=== PATIENT | male | born 1980 | race Caucasian/White ===

== ENCOUNTER 2022-06-28 18:54 | Emergency (ER) | payer OTHER ==
[2022-06-28] MEDS ORDERED: DUONEB 0.5-3 MG/3 ml Neb IH ONE ×2 (19:15→19:52)
[2022-06-28 19:34] LABS: Absolute Neutrophil Ct (ANC) 6.08 x10^3/uL (1.4-6.9); Basophil (Absolute #) 0.07 x10^3/uL (0-0.4); Eosinophil % 1.6 % (0.00-5.0); Eosinophil (Absolute #) 0.17 x10^3/uL (0-0.5); Hematocrit 40.7 % (42-50); Hemoglobin 13.4 g/dL (12.5-18.0); Lymphocyte (Absolute #) 3.71 x10^3/uL (1.0-4.6); Lymphocytes % 34.4 % (24.0-44.0); Mean Cell Volume 94.2 fL (78-100); Mean Corpuscular Hgb Concent. 32.9 g/dL (32-36); Mean Platelet Volume 10.1 fL (7.5-11.0); Monocyte (Absolute #) 0.71 x10^3/uL (0.0-1.3); Monocytes % 6.6 % (0.0-12.0); Neutrophil % 56.5 % (36.0-66.0); Platelet Count 275 x10^3/uL (150-450); Red Blood Count 4.32 x10^6/uL (4.1-5.6); Red Cell Distribution Width 12.9 % (11.5-14.0); White Blood Count 10.8 x10^3/uL (4.0-10.5)
--- NOTE | 2022-06-28 19:41 | ERPHSYRPT ---
- History of Present Illness Time Seen by Provider: 06/28/22 19:15 Source: patient Exam Limitations: no limitations Patient Subjective Stated Complaint: pt states "I think I have scare tissue on my lungs from when I had covid. I am freaking out." Triage Nursing Assessment: pt ambulated into the er; pt is axo x4; c/o sob; pt denies pain; pt is anxious; pt is not showing signs of visible respiratory distress; pt 100% on room air; clear lung sounds in all lobes; afebrile; hypertensive Physician History: 42 years old male with history of heavy tobacco abuse presented in the ER with chief complaint of chest tightness pressure which patient describes "I have an elephant sitting on my right chest". This has been going off and on for 2 weeks with gradual worsening lately. Also report chronic smoker cough which is not any worse than usual. Patient thinks he has a lung scarring from COVID-19. Gets short of breath with activity and also it hurts to take a deep breath. No fever or chills reported. Timing/Duration: week(s) (2), gradual onset, worse Activities at Onset: activity Severity of Dyspnea-Max: moderate Severity of Dyspnea-Current: moderate Possible Cause: no prior episodes Modifying Factors: Worsens With: coughing, deep breath Associated Symptoms: cough, chest pain/discomfort, painful breathing, tightness Allergies/Adverse Reactions: No Known Drug Allergies Allergy (Unverified 06/28/22 19:01) Hx Tetanus, Diphtheria Vaccination/Date Given: No Hx Influenza Vaccination/Date Given: Yes Travel Risk - International Travel Have you traveled outside of the country in past 3 weeks: No - Coronavirus Screening Are you exhibiting any of the following symptoms?: No Close contact with a COVID-19 positive Pt in past 14-21 Days: No - Vaccine Status Have you recieved a Covid-19 vaccination: Yes 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: [employer] - Review of Systems Constitutional: No Symptoms Eyes: No Symptoms Ears, Nose, & Throat: No Symptoms Respiratory: Cough, Dyspnea Cardiac: Chest Pain Abdominal/Gastrointestinal: No Symptoms Genitourinary Symptoms: No Symptoms Musculoskeletal: No Symptoms Skin: No Symptoms Neurological: No Symptoms Psychological: No Symptoms Endocrine: No Symptoms Hematologic/Lymphatic: No Symptoms - Past Medical History Pertinent Past Medical History: No - Past Surgical History Past Surgical History: No - Social History Smoking Status: Current every day smoker Exposure to second hand smoke: Yes Drug Use: marijuana Patient Lives Alone: No - Nursing Vital Signs Nursing Vital Signs: Initial Vital Signs Temperature 98.2 F 06/28/22 19:02 Pulse Rate 107 H 06/28/22 19:02 Respiratory Rate 18 06/28/22 19:02 Blood Pressure 182/107 06/28/22 19:02 O2 Sat by Pulse Oximetry 100 06/28/22 19:02 Pain Scale Pain Intensity 0 - Physical Exam General Appearance: no apparent distress, alert Eye Exam: PERRL/EOMI Ears, Nose, Throat Exam: hearing grossly normal Neck Exam: normal inspection, full range of motion Respiratory Exam: normal breath sounds, lungs clear Cardiovascular/Chest Exam: normal heart sounds, tachycardia Abdominal/Gastrointestinal Exam: soft, normal bowel sounds, No tenderness Extremity Exam: non-tender, normal range of motion Neurologic Exam: alert, 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, cooperative Skin Exam: normal color SpO2 Interpretation: normal SpO2: 100 O2 Delivery: Room Air Ordered Tests: Active Orders 24 hr Category Date Time Status Cell Support Operator STAT Care 06/28/22 19:15 Active EKG-ER Only STAT Care 06/28/22 19:15 Active IV Insertion STAT Care 06/28/22 19:15 Active CHEST 1 VIEW (PORTABLE) Stat Exams 06/28/22 19:46 Taken CBC W DIFF Stat Lab 06/28/22 19:33 Completed CMP Stat Lab 06/28/22 19:33 Results D-DIMER QUANTITATIVE Stat Lab 06/28/22 19:33 Completed NT PRO BNP Stat Lab 06/28/22 19:33 Results TROPONIN Q4H Lab 06/28/22 19:33 Completed TROPONIN Q4H Lab 06/28/22 23:15 Ordered TROPONIN Q4H Lab 06/29/22 03:15 Ordered Respiratory Therapy Assessment DAILY RT 06/28/22 19:54 Completed Medication Summary Discontinued Medications Generic Name Dose Route Start Last Admin Trade Name Freq PRN Reason Stop Dose Admin Albuterol/Ipratropium 3 ml 06/28/22 19:15 06/28/22 19:53 Ipratropium/Albuterol Sulfate 3 Ml Ampul.Neb IH 06/28/22 19:16 3 ml STAT ONE Administration Albuterol/Ipratropium Confirm 06/28/22 19:52 Ipratropium/Albuterol Sulfate 3 Ml Ampul.Neb Administered 06/28/22 19:53 Dose 3 ml IH .STK-MED ONE Lab/Rad Data: Laboratory Result Diagrams 06/28/22 19:33 06/28/22 19:33 Laboratory Results 06/28/22 06/28/22 06/28/22 Range/Units 19:33 19:33 19:33 WBC 10.8 H (4.0-10.5) x10^3/uL RBC 4.32 (4.1-5.6) x10^6/uL Hgb 13.4 (12.5-18.0) g/dL Hct 40.7 L (42-50) % MCV 94.2 (78-100) fL MCH 31.0 (26-32) pg MCHC 32.9 (32-36) g/dL RDW 12.9 (11.5-14.0) % Plt Count 275 (150-450) x10^3/uL MPV 10.1 (7.5-11.0) fL Gran % 56.5 (36.0-66.0) % Immature Gran % (Auto) 0.3 (0.00-0.4) % Nucleat RBC Rel Count 0.0 (0.00-0.1) % Eos # (Auto) 0.17 (0-0.5) x10^3/uL Immature Gran # (Auto) 0.03 (0.00-0.03) x10^3u/L Absolute Lymphs (auto) 3.71 (1.0-4.6) x10^3/uL Absolute Monos (auto) 0.71 (0.0-1.3) x10^3/uL Absolute Nucleated RBC 0.00 (0.00-0.01) x10^3u/L Lymphocytes % 34.4 (24.0-44.0) % Monocytes % 6.6 (0.0-12.0) % Eosinophils % 1.6 (0.00-5.0) % Basophils % 0.6 (0.0-0.4) % Absolute Granulocytes 6.08 (1.4-6.9) x10^3/uL Basophils # 0.07 (0-0.4) x10^3/uL D-Dimer < 0.19 (0.0-0.50) mg/L Sodium Pending Sodium Direct 141 (138-146) mmol/L Potassium 4.2 (3.5-4.9) mmol/L Chloride 104 (98-109) mmol/L Carbon Dioxide 26 (24-29) mmol/L Anion Gap Pending BUN Pending Venous BUN 21 (8-26) mg/dL Creatinine 1.2 (0.6-1.3) mg/dL Estimated GFR Pending Glucose 108 H (70-105) mg/dL Calcium Pending Ionized Calcium 1.27 (1.12-1.32) mmol/L Total Bilirubin Pending AST Pending ALT Pending Alkaline Phosphatase Pending Troponin 0.00 (0.00-0.03) ng/mL Troponin I (0.000-0.034) ng/mL NT-Pro-B Natriuret Pep 70.8 (0-450) pg/mL Serum Total Protein Pending Albumin Pending 06/28/22 Range/Units 19:33 WBC (4.0-10.5) x10^3/uL RBC (4.1-5.6) x10^6/uL Hgb (12.5-18.0) g/dL Hct (42-50) % MCV (78-100) fL MCH (26-32) pg MCHC (32-36) g/dL RDW (11.5-14.0) % Plt Count (150-450) x10^3/uL MPV (7.5-11.0) fL Gran % (36.0-66.0) % Immature Gran % (Auto) (0.00-0.4) % Nucleat RBC Rel Count (0.00-0.1) % Eos # (Auto) (0-0.5) x10^3/uL Immature Gran # (Auto) (0.00-0.03) x10^3u/L Absolute Lymphs (auto) (1.0-4.6) x10^3/uL Absolute Monos (auto) (0.0-1.3) x10^3/uL Absolute Nucleated RBC (0.00-0.01) x10^3u/L Lymphocytes % (24.0-44.0) % Monocytes % (0.0-12.0) % Eosinophils % (0.00-5.0) % Basophils % (0.0-0.4) % Absolute Granulocytes (1.4-6.9) x10^3/uL Basophils # (0-0.4) x10^3/uL D-Dimer (0.0-0.50) mg/L Sodium Sodium Direct (138-146) mmol/L Potassium (3.5-4.9) mmol/L Chloride (98-109) mmol/L Carbon Dioxide (24-29) mmol/L Anion Gap BUN Venous BUN (8-26) mg/dL Creatinine (0.6-1.3) mg/dL Estimated GFR Glucose (70-105) mg/dL Calcium Ionized Calcium (1.12-1.32) mmol/L Total Bilirubin AST ALT Alkaline Phosphatase Troponin (0.00-0.03) ng/mL Troponin I < 0.012 (0.000-0.034) ng/mL NT-Pro-B Natriuret Pep (0-450) pg/mL Serum Total Protein Albumin - Progress Progress: improved, re-examined Air Movement: good Progress Note: 06/28/22 22:18 Is given DuoNeb, on reevaluation feeling better. EKG no acute ischemic changes. Negative troponin and D-dimer. Chest x-ray negative for any acute finding reviewed by me, official report is pending. Patient symptoms been going on for couple of weeks and do not think needs second troponin and one will rule out. I would give him albuterol inhaler to use as needed and recommended smoking cessation. Blood Culture(s) Obtained: No Antibiotics given: No Counseled pt/family regarding: lab results, diagnosis, need for follow-up, rad results, smoking cessation - Departure Departure Disposition: Home Clinical Impression: Atypical chest pain Condition: Stable Critical Care Time: No Referrals: CLAUDETTE LOPEZ [Primary Care Provider] - Follow up/PCP as directed (1 2 days for reevaluation) RUBA MARTINEZ [CONSULTING PHYSICIAN] - Follow up/PCP as directed (Call for appointment for reevaluation) Instructions: Chest Pain (DC) Additional Instructions: Follow-up with primary care and cardiology for reevaluation. Do not smoke. Return to ER for worsening chest pain or if having difficulty breathing etc. Prescriptions: Albuterol Sulfate [Albuterol Sulfate Hfa] 8.5 gm IH Q6H PRN 7 Days #1 inh PRN Reason: Cough
[2022-06-28 20:13] LABS: ISTAT BUN 21 mg/dL (8-26); ISTAT CL 104 mmol/L (98-109); ISTAT CO2 26 mmol/L (24-29); ISTAT CREA 1.2 mg/dL (0.6-1.3); ISTAT GLUC 108 mg/dL (70-105); ISTAT K 4.2 mmol/L (3.5-4.9); ISTAT NA 141 mmol/L (138-146)
[2022-06-28 21:09] VITALS: BP 132/83; PULSE 63
[2022-06-28 22:03] VITALS: O2SAT 100
[2022-06-28 22:14] LABS: NT PRO BNP 70.8 pg/mL (0-450)
[2022-06-28 22:35] LABS: ALBUMIN 4.7 g/dL (3.5-5.0); ALKALINE PHOSPHATASE 68 U/L (38-126); ANION GAP 15.2 MEQ/L (5-15); BLOOD UREA NITROGEN 18 mg/dL (9-20); CHLORIDE 104 mmol/L (98-107); Calcium 9.6 mg/dL (8.4-10.2); Carbon Dioxide 24 mmol/L (22-30); Creatinine 1 1.03 mg/dL (0.66-1.25); EST GLOMERULAR FILTRATION RATE > 60.0 ML/MIN; Glucose 111 mg/dL (74-106); Potassium 4.6 mmol/L (3.5-5.1); SGOT/AST 23 U/L (17-59); SGPT/ALT 16 U/L (0-50); SODIUM 139 mmol/L (137-145); Total Protein 7.5 g/dL (6.3-8.2)
--- NOTE | 2022-06-29 08:43 | XRAY ---
Indication: Short of breath. Comparison: None Portable apical lordotic chest hyperinflated and clear. Heart not enlarged. Bony thorax intact. Impression: Nonacute hyperinflated chest.
== END 2022-06-28 22:29 | disposition home or self-care (01) ==
LOC: ED 18:54
DX: R07.89 Other chest pain (principal); R06.02 Shortness of breath; R06.00 Dyspnea, unspecified; R05.3 Chronic cough; Z72.0 Tobacco use; Z86.16 Personal history of COVID-19
CPT/HCPCS: 36415; 71045; 80047; 80053; 83880; 84484; 85025; 85379; 93005; 93041; 94640; 99283; A9270-GY

== ENCOUNTER 2022-07-02 18:50 | Emergency (ER) | payer OTHER ==
[2022-07-02] MEDS ORDERED: CLONIDINE 0.1 MG TABLET PO ONE (19:47)
--- NOTE | 2022-07-02 19:47 | ERPHSYRPT ---
- History of Present Illness Time Seen by Provider: 07/02/22 19:40 Source: patient Exam Limitations: no limitations Patient Subjective Stated Complaint: ringing in ears x2 weeks, was noted to htn when in ER last , anxious Triage Nursing Assessment: Pt ambulated into ER, no difficulty. Pt alert and oriented x4, pleasant and cooperative. Pt is very anxious. Pt is a "worry wart". Pt was seen in ER last week due to anxiety and was told then he had htn. Pt has been worrying about this since then. He has an appt with Dr. Peck on Saturday. Pt is having some ringing in his ears. Pt denies any pain. Physician History: This is a thin white male patient who is 42 years old and is a patient of Dr. Peck and presents with high blood pressure. Patient is very anxious and worries a lot per his report. He was seen here on 06/28/2022 for atypical chest pain. He does not have chest pain today. He is a heavy smoker of cigarette smoking greater than a pack of cigarettes per day. He had a negative troponin negative D-dimer levels on 06/28/2022. Because of some dizziness and ringing in his ears that has been intermittent for over a month patient is back here today for evaluation. Patient has an appointment to see Dr. Peck on 07/09/2022. Timing/Duration: intermittent Severity: mild Associated Symptoms: denies symptoms Allergies/Adverse Reactions: No Known Drug Allergies Allergy (Verified 07/02/22 19:33) Hx Tetanus, Diphtheria Vaccination/Date Given: (unknown) Hx Influenza Vaccination/Date Given: No Hx Pneumococcal Vaccination/Date Given: No Immunizations Up to Date: No Travel Risk - International Travel Have you traveled outside of the country in past 3 weeks: No - Coronavirus Screening Are you exhibiting any of the following symptoms?: No Close contact with a COVID-19 positive Pt in past 14-21 Days: No - Vaccine Status Have you recieved a Covid-19 vaccination: Yes 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[employer] - Review of Systems Constitutional: No Symptoms Eyes: No Symptoms Ears, Nose, & Throat: Tinnitus Respiratory: No Symptoms Cardiac: No Symptoms Abdominal/Gastrointestinal: No Symptoms Genitourinary Symptoms: No Symptoms Musculoskeletal: No Symptoms Skin: No Symptoms Neurological: Dizziness Psychological: No Symptoms Endocrine: No Symptoms Hematologic/Lymphatic: No Symptoms Immunological/Allergic: No Symptoms All Other Systems: Reviewed and Negative - Past Medical History Pertinent Past Medical History: No - Past Surgical History Past Surgical History: No - Social History Smoking Status: Current every day smoker How long have you smoked: 25 yrs Exposure to second hand smoke: No Drug Use: none Patient Lives Alone: No - Nursing Vital Signs Nursing Vital Signs: Initial Vital Signs Temperature 98.3 F 07/02/22 19:23 Pulse Rate 94 H 07/02/22 19:23 Respiratory Rate 20 07/02/22 19:23 Blood Pressure 170/100 07/02/22 19:23 O2 Sat by Pulse Oximetry 99 07/02/22 19:23 Pain Scale Pain Intensity 0 - Physical Exam General Appearance: no apparent distress, alert, anxiety, thin Eye Exam: PERRL/EOMI, eyes nml inspection Ears, Nose, Throat Exam: normal ENT inspection, moist mucous membranes Neck Exam: normal inspection, non-tender, supple, full range of motion Respiratory Exam: normal breath sounds, lungs clear, airway intact, No chest tenderness, No respiratory distress Cardiovascular Exam: regular rate/rhythm, normal heart sounds, normal peripheral pulses Gastrointestinal/Abdomen Exam: soft, normal bowel sounds, No tenderness Rectal Exam: not done Back Exam: normal inspection, normal range of motion, vertebral tenderness, No CVA tenderness Extremity Exam: normal inspection, normal range of motion, pelvis stable Neurologic Exam: alert, 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, cooperative, party plan demonstrator 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 tested, nml cerebellar function, nml station & gait, sensation nml, other (Anxious) Skin Exam: normal color, warm, dry Lymphatic Exam: No adenopathy SpO2 Interpretation: normal SpO2: 99 O2 Delivery: Room Air - Course Nursing assessment & vital signs reviewed: Yes Ordered Tests: Active Orders 24 hr Category Date Time Status CBC W DIFF Stat Lab 07/02/22 19:45 Completed CMP Stat Lab 07/02/22 19:45 Completed Medication Summary Discontinued Medications Generic Name Dose Route Start Last Admin Trade Name Jessica PRN Reason Stop Dose Admin Clonidine 0.1 mg 07/02/22 19:47 07/02/22 19:54 Clonidine Hcl 0.1 Mg Tablet PO 07/02/22 19:48 0.1 mg STAT ONE Administration Clonidine Confirm 07/02/22 19:53 Clonidine Hcl 0.1 Mg Tablet Administered 09/12/22 19:54 Dose 0.1 mg .ROUTE .STK-MED ONE Lab/Rad Data: Laboratory Result Diagrams 07/02/22 19:45 07/02/22 19:45 Laboratory Results 07/02/22 07/02/22 Range/Units 19:45 19:45 WBC 11.5 H (4.0-10.5) x10^3/uL RBC 4.67 (4.1-5.6) x10^6/uL Hgb 14.4 (12.5-18.0) g/dL Hct 43.9 (42-50) % MCV 94.0 (78-100) fL MCH 30.8 (26-32) pg MCHC 32.8 (32-36) g/dL RDW 13.0 (11.5-14.0) % Plt Count 299 (150-450) x10^3/uL MPV 10.2 (7.5-11.0) fL Gran % 58.1 (36.0-66.0) % Immature Gran % (Auto) 0.2 (0.00-0.4) % Nucleat RBC Rel Count 0.0 (0.00-0.1) % Eos # (Auto) 0.21 (0-0.5) x10^3/uL Immature Gran # (Auto) 0.02 (0.00-0.03) x10^3u/L Absolute Lymphs (auto) 3.65 (1.0-4.6) x10^3/uL Absolute Monos (auto) 0.85 (0.0-1.3) x10^3/uL Absolute Nucleated RBC 0.00 (0.00-0.01) x10^3u/L Lymphocytes % 31.7 (24.0-44.0) % Monocytes % 7.4 (0.0-12.0) % Eosinophils % 1.8 (0.00-5.0) % Basophils % 0.8 (0.0-0.4) % Absolute Granulocytes 6.68 (1.4-6.9) x10^3/uL Basophils # 0.09 (0-0.4) x10^3/uL Sodium 138 (137-145) mmol/L Potassium 4.6 (3.5-5.1) mmol/L Chloride 103 (98-107) mmol/L Carbon Dioxide 27 (22-30) mmol/L Anion Gap 11.5 (5-15) MEQ/L BUN 18 (9-20) mg/dL Creatinine 1.17 (0.66-1.25) mg/dL Estimated GFR > 60.0 ML/MIN Glucose 95 (74-106) mg/dL Calcium 9.5 (8.4-10.2) mg/dL Total Bilirubin 0.50 (0.2-1.3) mg/dL AST 21 (17-59) U/L ALT 15 (0-50) U/L Alkaline Phosphatase 69 (38-126) U/L Serum Total Protein 8.0 (6.3-8.2) g/dL Albumin 4.8 (3.5-5.0) g/dL - Progress Progress: improved Counseled pt/family regarding: lab results, diagnosis, need for follow-up - Departure Clinical Impression: Hypertension Condition: Stable Critical Care Time: No Referrals: CLAUDETTE PECK [Primary Care Provider] - Follow up/PCP as directed Additional Instructions: Take your medication as prescribed. Stop smoking and use those funds to purchase your blood pressure machine then medications. Keep your appointment with Dr. Peck on 07/09/2022. Monitor your blood pressure 3 times a day over the next week and make a daily log of those values. Bring those values to your appointment with Dr. Peck on 07/09/2022 Prescriptions: Clonidine HCl 0.1 mg [Clonidine 0.1 mg Tablet] 0.1 mg PO BID #14 tablet
[2022-07-02] MEDS ORDERED: CLONIDINE 0.1 MG TABLET ONE (19:53)
[2022-07-02 20:02] LABS: Absolute Neutrophil Ct (ANC) 6.68 x10^3/uL (1.4-6.9); Basophil (Absolute #) 0.09 x10^3/uL (0-0.4); Eosinophil % 1.8 % (0.00-5.0); Eosinophil (Absolute #) 0.21 x10^3/uL (0-0.5); Hematocrit 43.9 % (42-50); Hemoglobin 14.4 g/dL (12.5-18.0); Lymphocyte (Absolute #) 3.65 x10^3/uL (1.0-4.6); Lymphocytes % 31.7 % (24.0-44.0); Mean Corpuscular Hemoglobin 30.8 pg (26-32); Mean Corpuscular Hgb Concent. 32.8 g/dL (32-36); Mean Platelet Volume 10.2 fL (7.5-11.0); Monocyte (Absolute #) 0.85 x10^3/uL (0.0-1.3); Monocytes % 7.4 % (0.0-12.0); Neutrophil % 58.1 % (36.0-66.0); Platelet Count 299 x10^3/uL (150-450); Red Blood Count 4.67 x10^6/uL (4.1-5.6); White Blood Count 11.5 x10^3/uL (4.0-10.5)
[2022-07-02 20:18] LABS: ALBUMIN 4.8 g/dL (3.5-5.0); ALKALINE PHOSPHATASE 69 U/L (38-126); ANION GAP 11.5 MEQ/L (5-15); BLOOD UREA NITROGEN 18 mg/dL (9-20); CHLORIDE 103 mmol/L (98-107); Calcium 9.5 mg/dL (8.4-10.2); Carbon Dioxide 27 mmol/L (22-30); Creatinine 1 1.17 mg/dL (0.66-1.25); EST GLOMERULAR FILTRATION RATE > 60.0 ML/MIN; Glucose 95 mg/dL (74-106); Potassium 4.6 mmol/L (3.5-5.1); SGOT/AST 21 U/L (17-59); SGPT/ALT 15 U/L (0-50); SODIUM 138 mmol/L (137-145)
[2022-07-02 21:03] VITALS: BP 129/87; PULSE 65; O2SAT 96
== END 2022-07-02 21:00 | disposition home or self-care (01) ==
LOC: ED 18:50
DX: I10 Essential (primary) hypertension (principal); R42 Dizziness and giddiness; H93.13 Tinnitus, bilateral; Z72.0 Tobacco use
CPT/HCPCS: 36415; 80053; 85025; 99283; A9270-GY

== ENCOUNTER 2022-07-25 11:05 | Emergency (ER) | payer OTHER ==
--- NOTE | 2022-07-25 11:10 | ERPHSYRPT ---
- History of Present Illness Time Seen by Provider: 07/25/22 11:10 Source: patient Exam Limitations: no limitations Physician History: This is a 42-year-old white male patient who continues to smoke cigarettes daily and was recently diagnosed with hypertension and placed on clonidine for controlling his blood pressure. Patient was also told he had some anxiety issues and placed on hydroxyzine for this by his primary care provider. He has had extensive work-up both in the emergency department on 2 different occasions as well as an outpatient treadmill/cardiac stress test. He is also placed on albuterol inhaler for COPD issues. He presents with cough and congestion. He voiced a concern that he may have lung cancer to the nurse. He has had no hemoptysis. He has no chest pain at this time. He feels as though his chest is congested. He has had no fevers. He has no abdominal pain. Timing/Duration: day(s) (Last several days) Cough Quality/Degree: mild, dry cough Possible Cause: occasional episodes Modifying Factors: Improves With: albuterol inhaler, coughing Associated Symptoms: cough, nasal congestion, No chest pain/soreness, No lightheadedness Allergies/Adverse Reactions: No Known Drug Allergies Allergy (Verified 07/25/22 11:06) Home Medications: Hydroxyzine HCl 25 mg [Atarax 25 mg] 1 tab PO QID PRN 07/25/22 [History] Hx Tetanus, Diphtheria Vaccination/Date Given: (unknown) Hx Influenza Vaccination/Date Given: No Hx Pneumococcal Vaccination/Date Given: No Travel Risk - International Travel Have you traveled outside of the country in past 3 weeks: No - Coronavirus Screening Are you exhibiting any of the following symptoms?: No Close contact with a COVID-19 positive Pt in past 14-21 Days: No - Vaccine Status Have you recieved a Covid-19 vaccination: Yes 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[employer] - Review of Systems Constitutional: No Symptoms Eyes: No Symptoms Ears, Nose, & Throat: No Symptoms Respiratory: Cough Cardiac: No Symptoms Abdominal/Gastrointestinal: No Symptoms Genitourinary Symptoms: No Symptoms Musculoskeletal: No Symptoms Skin: No Symptoms Neurological: No Symptoms Psychological: No Symptoms Endocrine: No Symptoms Hematologic/Lymphatic: No Symptoms Immunological/Allergic: No Symptoms All Other Systems: Reviewed and Negative - Past Medical History Pertinent Past Medical History: No - Past Surgical History Past Surgical History: No - Social History Smoking Status: Current every day smoker How long have you smoked: 25 yrs Exposure to second hand smoke: No Drug Use: none Patient Lives Alone: No - Nursing Vital Signs Nursing Vital Signs: Initial Vital Signs Temperature 97.5 F 07/25/22 11:08 Pulse Rate 89 07/25/22 11:08 Respiratory Rate 18 07/25/22 11:08 Blood Pressure 163/98 07/25/22 11:08 O2 Sat by Pulse Oximetry 100 07/25/22 11:08 Pain Scale Pain Intensity 0 - Physical Exam General Appearance: no apparent distress, alert, anxiety, thin Eye Exam: PERRL/EOMI, eyes nml inspection Ears, Nose, Throat Exam: normal ENT inspection, moist mucous membranes Neck Exam: normal inspection, non-tender, supple, full range of motion Respiratory Exam: normal breath sounds, lungs clear, airway intact, No chest tenderness, No respiratory distress Cardiovascular Exam: regular rate/rhythm, normal heart sounds, normal peripheral pulses Gastrointestinal/Abdomen Exam: soft, normal bowel sounds, No tenderness Rectal Exam: not done Back Exam: normal inspection, normal range of motion, No CVA tenderness, No vertebral tenderness Extremity Exam: normal inspection, normal range of motion, pelvis stable Neurologic Exam: alert, 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, cooperative, 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, normal mood/affect, nml cerebellar function, nml station & gait, sensation nml Skin Exam: normal color, warm, dry Lymphatic Exam: No adenopathy SpO2 Interpretation: normal O2 Delivery: Room Air - Course Nursing assessment & vital signs reviewed: Yes EKG Interpreted by Me: RATE (68), Sinus Rhythm, NORMAL AXIS, NORMAL INTERVALS, NORMAL QRS, NORMAL ST-T, Other (No acute ischemic changes) Ordered Tests: Active Orders 24 hr Category Date Time Status EKG-ER Only STAT Care 07/25/22 11:27 Active CHEST 1 VIEW (PORTABLE) Stat Exams 07/25/22 11:27 Completed BMP Stat Lab 07/25/22 12:00 Completed D-DIMER QUANTITATIVE Stat Lab 07/25/22 12:00 Completed TROPONIN Q4H Lab 07/25/22 12:00 Completed TROPONIN Q4H Lab 07/25/22 15:30 Ordered TROPONIN Q4H Lab 07/25/22 19:30 Ordered Lab/Rad Data: Laboratory Result Diagrams 07/25/22 12:00 Laboratory Results 07/25/22 07/25/22 07/25/22 Range/Units 12:00 12:00 12:00 D-Dimer < 0.19 (0.0-0.50) mg/L Sodium 137 (137-145) mmol/L Potassium 4.0 (3.5-5.1) mmol/L Chloride 103 (98-107) mmol/L Carbon Dioxide 26 (22-30) mmol/L Anion Gap 12.5 (5-15) MEQ/L BUN 13 (9-20) mg/dL Creatinine 0.91 (0.66-1.25) mg/dL Estimated GFR > 60.0 ML/MIN Glucose 99 (74-106) mg/dL Calcium 9.5 (8.4-10.2) mg/dL Troponin I < 0.012 (0.000-0.034) ng/mL - Progress Progress: improved, re-examined Air Movement: good Progress Note: 07/25/22 12:28 Chest x-ray shows no acute cardiopulmonary processes. Blood Culture(s) Obtained: No Antibiotics given: No Counseled pt/family regarding: lab results, diagnosis, need for follow-up, rad results - Departure Departure Disposition: Home Clinical Impression: Anxiety about health, Chest pressure Condition: Stable Critical Care Time: No Referrals: CLAUDETTE LOPEZ [Primary Care Provider] - Follow up/PCP as directed Additional Instructions: Take all your medications as prescribed. Follow-up with your primary care doctor for further evaluation and management including referral to finger grip machine operator or accounting director if indicated.
[2022-07-25 12:15] VITALS: BP 146/90; O2SAT 98
--- NOTE | 2022-07-25 12:26 | XRAY ---
Indication: Cough and congestion. Comparison: June 28, 2022 Portable chest remains hyperinflated and clear. Heart not enlarged. Bony thorax intact. No new/acute findings.
[2022-07-25 12:42] LABS: ANION GAP 12.5 MEQ/L (5-15); BLOOD UREA NITROGEN 13 mg/dL (9-20); CHLORIDE 103 mmol/L (98-107); Calcium 9.5 mg/dL (8.4-10.2); Carbon Dioxide 26 mmol/L (22-30); Creatinine 1 0.91 mg/dL (0.66-1.25); EST GLOMERULAR FILTRATION RATE > 60.0 ML/MIN; Glucose 99 mg/dL (74-106); SODIUM 137 mmol/L (137-145)
[2022-07-25 13:03] VITALS: PULSE 66
== END 2022-07-25 13:05 | disposition home or self-care (01) ==
LOC: ED 11:05
DX: F45.9 Somatoform disorder, unspecified (principal); R07.9 Chest pain, unspecified; R09.81 Nasal congestion; R05.9 Cough, unspecified; I10 Essential (primary) hypertension; J44.9 Chronic obstructive pulmonary disease, unspecified; Z72.0 Tobacco use; Z79.899 Other long term (current) drug therapy
CPT/HCPCS: 36415; 71045; 80048; 84484; 85379; 93005; 99283

== ENCOUNTER 2022-09-14 10:50 | Emergency (ER) | payer OTHER ==
[2022-09-14 11:14] VITALS: O2SAT 100
[2022-09-14] MEDS ORDERED: CLONIDINE 0.1 MG TABLET PO ONE (11:32)
--- NOTE | 2022-09-14 11:42 | ERPHSYRPT ---
- History of Present Illness Time Seen by Provider: 09/14/22 11:33 Source: patient, family Exam Limitations: no limitations Patient Subjective Stated Complaint: Headache Triage Nursing Assessment: Patient ambulated back to ED and transferred self to bed. Patient A+O x3. Patient's skin pink, warm and dry. Patient complains of headache for 3 days. Patient states his granddaughter was dx with RSV and he was around her. Patient states he was down at [facility] and was told it would be a 3 hour wait and if he didn't want to wait go to ER. Physician History: Pt was a quick care but was told to check here as they were backed up. He has had mild headache a few days, mild resp symptoms/ laryngitis Dx a few days ago, as was treated for a few days ago but could not tolerate steroids so stopped. daughter has Strep and RSV. He also requests to get his noon time BP med clonidine. No Neuro symptoms. No pronator drift normal fundi normal visual fileds. no facial droop. No fever, N or V. Chest clear. Abd nontender without peritoneal signs. No rash. Pharynx with erythema swollowing OK in ER. Timing/Duration: day(s) Cough Quality/Degree: no cough Possible Cause: no prior episodes Modifying Factors: Improves With: nothing Associated Symptoms: headache, sore throat Allergies/Adverse Reactions: No Known Drug Allergies Allergy (Verified 09/14/22 11:07) Home Medications: Hydroxyzine HCl 25 mg [Atarax 25 mg] 1 tab PO QID PRN 07/25/22 [History] Hx Tetanus, Diphtheria Vaccination/Date Given: (unknown) Hx Influenza Vaccination/Date Given: No Hx Pneumococcal Vaccination/Date Given: No Immunizations Up to Date: Yes Travel Risk - International Travel Have you traveled outside of the country in past 3 weeks: No - Coronavirus Screening Are you exhibiting any of the following symptoms?: No Close contact with a COVID-19 positive Pt in past 14-21 Days: No - Vaccine Status Have you recieved a Covid-19 vaccination: 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: [email or web address] - Review of Systems Constitutional: No Fever, No Chills Eyes: No Symptoms Ears, Nose, & Throat: No Symptoms, Other (had laryngitis) Respiratory: Other (laryngitis), No Cough, No Dyspnea Cardiac: No Chest Pain, No Edema, No Syncope Abdominal/Gastrointestinal: No Abdominal Pain, No Nausea, No Vomiting, No Diarrhea Genitourinary Symptoms: No Dysuria Musculoskeletal: No Back Pain, No Neck Pain Skin: No Rash Neurological: No Dizziness, No Focal Weakness, No Sensory Changes Psychological: No Symptoms Endocrine: No Symptoms Hematologic/Lymphatic: No Symptoms Immunological/Allergic: No Symptoms All Other Systems: Reviewed and Negative - Past Medical History Pertinent Past Medical History: No Neurological History: No Pertinent History ENT History: No Pertinent History Cardiac History: Hypertension Respiratory History: No Pertinent History Endocrine Medical History: No Pertinent History Musculoskeletal History: No Pertinent History GI Medical History: No Pertinent History History: No Pertinent History Psycho-Social History: Anxiety Male Reproductive Disorders: No Pertinent History - Past Surgical History Past Surgical History: No - Social History Smoking Status: Current every day smoker How long have you smoked: 25 yrs Exposure to second hand smoke: No Drug Use: none Patient Lives Alone: No - Nursing Vital Signs Nursing Vital Signs: Initial Vital Signs Temperature 98.5 F 09/14/22 11:10 Pulse Rate 81 09/14/22 11:10 Respiratory Rate 18 09/14/22 11:10 Blood Pressure 167/90 09/14/22 11:10 O2 Sat by Pulse Oximetry 100 09/14/22 11:10 Pain Scale Pain Intensity 2 - Physical Exam General Appearance: no apparent distress, alert Eye Exam: PERRL/EOMI, eyes nml inspection Ears, Nose, Throat Exam: normal ENT inspection, TMs normal, moist mucous membranes, pharyngeal erythema Neck Exam: normal inspection, non-tender, supple, full range of motion Respiratory Exam: normal breath sounds, lungs clear, No respiratory distress Cardiovascular Exam: regular rate/rhythm, normal heart sounds Gastrointestinal/Abdomen Exam: soft, No tenderness Rectal Exam: deferred Back Exam: normal inspection, No CVA tenderness, No vertebral tenderness Extremity Exam: normal inspection, normal range of motion Neurologic Exam: alert, 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, cooperative, normal mood/affect, sensation nml, No motor deficits Skin Exam: normal color, warm, dry, No rash Lymphatic Exam: No adenopathy SpO2 Interpretation: normal SpO2: 100 O2 Delivery: Room Air - Course Nursing assessment & vital signs reviewed: Yes Ordered Tests: Medication Summary Discontinued Medications Generic Name Dose Route Start Last Admin Trade Name Freq PRN Reason Stop Dose Admin Clonidine 0.1 mg 09/14/22 11:32 09/14/22 11:45 Clonidine Hcl 0.1 Mg Tablet PO 09/14/22 11:33 0.1 mg STAT ONE Administration Clonidine Confirm 09/14/22 11:44 Clonidine Hcl 0.1 Mg Tablet Administered 09/14/22 11:45 Dose 0.1 mg .ROUTE .STK-MED ONE Lab/Rad Data: Laboratory Results 09/14/22 09/14/22 Range/Units 11:51 11:17 Influenza Type A Ag NEGATIVE (NEGATIVE) Influenza Type B Ag NEGATIVE (NEGATIVE) RSV (PCR) NEGATIVE (Negative) SARS-CoV-2 (PCR) NEGATIVE (NEGATIVE) Group A Strep Antibody NOT DETECTED (NEGATIVE) - Progress Progress: improved, re-examined Air Movement: good Progress Note: 09/14/22 12:46 Pt declined further immediate w/u for headache at this time after discussion of risk and benefit such as CT. He is advised that further pathology could still be evolving undetected. pt left prior to instructions after learning that labs were negative. He had been told to f/u with PMD and return meantime if not improving or further symptoms. He had the capacity with normal mental status to make this choice of not receiving further care or instructions. 09/14/22 12:49 Blood Culture(s) Obtained: No Antibiotics given: No Counseled pt/family regarding: lab results, diagnosis, need for follow-up - Departure Departure Disposition: Home Clinical Impression: URI (upper respiratory infection), Headache, Hypertension Condition: Good Critical Care Time: No Referrals: CLAUDETTE LOPEZ [Primary Care Provider] - Follow up/PCP as directed Instructions: Headache, Adult (DC), Viral Upper Respiratory Infection, Adult (DC), High Blood Pressure (DC) Additional Instructions: followup with your DrJayden for Blood Pressure and resp infection and headache since additional problems may be developing not yet detected. return meantime if not improving, neuro symptoms, dizziness, chest pain, short of breath or other symptoms of concern.
[2022-09-14] MEDS ORDERED: CLONIDINE 0.1 MG TABLET ONE (11:44)
[2022-09-14 12:14] LABS: INFLUENZA A NEGATIVE (NEGATIVE); INFLUENZA B NEGATIVE (NEGATIVE); RESPIRATORY SYNCTIAL VIRUS NEGATIVE (Negative); SARS-CoV-2 Xpert Express NEGATIVE (NEGATIVE)
[2022-09-14 12:42] VITALS: BP 160/88; PULSE 80
== END 2022-09-14 12:47 | disposition home or self-care (01) ==
LOC: ED 10:50
DX: J06.9 Acute upper respiratory infection, unspecified (principal); R51.9 Headache, unspecified; I10 Essential (primary) hypertension; Z79.899 Other long term (current) drug therapy
CPT/HCPCS: 0241U; 87651; 99282; A9270-GY

== ENCOUNTER 2023-03-12 17:12 | Emergency (ER) | payer OTHER ==
--- NOTE | 2023-03-12 17:15 | ERPHSYRPT ---
- History of Present Illness Time Seen by Provider: 03/12/23 17:15 Source: patient Physician History: This is a 42-year-old white male who has history of hypertension and anxiety issues. He presents with pain in his left upper chest which is nonradiating and is described as an ache. He thought maybe it was muscular pain because he did a lot of weed eating yesterday. However the pain did not go away and he decided to be evaluated in the emergency department. Upon arrival to the emergency department his pain has completely resolved. He does not have shortness of breath. He has no abdominal pain. He has had no fever or cough. He is a current daily smoker of cigarettes. He has had no diagnosed history of coronary artery disease. His primary care physician is Dr. Peck. Timing/Duration: today Severity: mild Associated Symptoms: denies symptoms (Now resolved) Allergies/Adverse Reactions: No Known Drug Allergies Allergy (Verified 03/12/23 17:14) Home Medications: Hydroxyzine HCl 25 mg [Atarax 25 mg] 1 tab PO HS 07/25/22 [History] Benazepril HCl 20 mg PO DAILY 03/12/23 [History] Clonidine HCl 0.1 mg [Clonidine 0.1 mg Tablet] 0.1 mg PO TID 03/12/23 [History] Hx Tetanus, Diphtheria Vaccination/Date Given: (unknown) Hx Influenza Vaccination/Date Given: No Hx Pneumococcal Vaccination/Date Given: No Travel Risk - International Travel Have you traveled outside of the country in past 3 weeks: No - Coronavirus Screening Are you exhibiting any of the following symptoms?: No Close contact with a COVID-19 positive Pt in past 14-21 Days: No - Vaccine Status Have you recieved a Covid-19 vaccination: Yes 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: [email or web address] - Review of Systems Constitutional: No Symptoms Eyes: No Symptoms Ears, Nose, & Throat: No Symptoms Respiratory: No Symptoms Cardiac: Chest Pain (Now resolved) Abdominal/Gastrointestinal: No Symptoms Genitourinary Symptoms: No Symptoms Musculoskeletal: No Symptoms Skin: No Symptoms Neurological: No Symptoms Psychological: No Symptoms Endocrine: No Symptoms Hematologic/Lymphatic: No Symptoms Immunological/Allergic: No Symptoms All Other Systems: Reviewed and Negative - Past Medical History Pertinent Past Medical History: No Neurological History: No Pertinent History ENT History: No Pertinent History Cardiac History: Hypertension Respiratory History: No Pertinent History Endocrine Medical History: No Pertinent History Musculoskeletal History: No Pertinent History GI Medical History: No Pertinent History History: No Pertinent History Psycho-Social History: Anxiety Male Reproductive Disorders: No Pertinent History - Past Surgical History Past Surgical History: No - Social History Smoking Status: Current every day smoker How long have you smoked: 25 yrs Exposure to second hand smoke: No Drug Use: none Patient Lives Alone: No - Nursing Vital Signs Nursing Vital Signs: Initial Vital Signs Temperature 98.3 F 03/12/23 17:13 Pulse Rate 111 H 03/12/23 17:13 Respiratory Rate 18 03/12/23 17:13 Blood Pressure 165/92 03/12/23 17:13 O2 Sat by Pulse Oximetry 100 03/12/23 17:13 Pain Scale Pain Intensity 1 - Physical Exam General Appearance: no apparent distress, alert, anxiety Eye Exam: PERRL/EOMI, eyes nml inspection Ears, Nose, Throat Exam: normal ENT inspection, moist mucous membranes Neck Exam: normal inspection, non-tender, supple, full range of motion Respiratory Exam: normal breath sounds, chest tenderness (Chest achiness has now resolved), lungs clear, airway intact, No respiratory distress Cardiovascular Exam: regular rate/rhythm, normal heart sounds, normal peripheral pulses Gastrointestinal/Abdomen Exam: soft, normal bowel sounds, No tenderness Rectal Exam: not done Back Exam: normal inspection, normal range of motion, No CVA tenderness, No vertebral tenderness Extremity Exam: normal inspection, normal range of motion, pelvis stable Neurologic Exam: alert, 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, cooperative, 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 tested, no rmal mood/affect, nml cerebellar function, nml station & gait, sensation nml Skin Exam: normal color, warm, dry Lymphatic Exam: No adenopathy SpO2 Interpretation: normal O2 Delivery: Room Air - Course Nursing assessment & vital signs reviewed: Yes EKG Interpreted by Me: RATE (92), Sinus Rhythm, NORMAL AXIS, NORMAL INTERVALS, NORMAL QRS, NORMAL ST-T, Other Ordered Tests: Active Orders 24 hr Category Date Time Status Powdered Metal Supervisor STAT Care 03/12/23 17:32 Active EKG-ER Only STAT Care 03/12/23 17:31 Active IV Insertion STAT Care 03/12/23 17:31 Active Pulse Oximetry (ED) STAT Care 03/12/23 17:31 Active CBC W DIFF Stat Lab 03/12/23 17:40 Completed CMP Stat Lab 03/12/23 17:40 Completed D-DIMER QUANTITATIVE Stat Lab 03/12/23 17:40 Completed TROPONIN Q4H Lab 03/12/23 17:40 Completed TROPONIN Q4H Lab 03/12/23 21:45 Ordered TROPONIN Q4H Lab 03/13/23 01:45 Ordered UA W/RFX UR CULTURE Stat Lab 03/12/23 18:18 Completed Medication Summary Discontinued Medications Generic Name Dose Route Start Last Admin Trade Name Jessica PRN Reason Stop Dose Admin Aspirin 324 mg 03/12/23 17:31 03/12/23 17:36 Aspirin 81 Mg Tab.Chew PO 03/12/23 17:32 324 mg STAT ONE Administration Lab/Rad Data: Laboratory Result Diagrams 03/12/23 17:40 03/12/23 17:40 Laboratory Results 03/12/23 03/12/23 03/12/23 Range/Units 18:18 17:40 17:40 WBC (4.0-10.5) x10^3/uL RBC (4.1-5.6) x10^6/uL Hgb (12.5-18.0) g/dL Hct (42-50) % MCV (78-100) fL MCH (26-32) pg MCHC (32-36) g/dL RDW (11.5-14.0) % Plt Count (150-450) x10^3/uL MPV (7.5-11.0) fL Gran % (36.0-66.0) % Immature Gran % (Auto) (0.00-0.4) % Nucleat RBC Rel Count (0.00-0.1) % Eos # (Auto) (0-0.5) x10^3/uL Immature Gran # (Auto) (0.00-0.03) x10^3u/L Absolute Lymphs (auto) (1.0-4.6) x10^3/uL Absolute Monos (auto) (0.0-1.3) x10^3/uL Absolute Nucleated RBC (0.00-0.01) x10^3u/L Lymphocytes % (24.0-44.0) % Monocytes % (0.0-12.0) % Eosinophils % (0.00-5.0) % Basophils % (0.0-0.4) % Absolute Granulocytes (1.4-6.9) x10^3/uL Basophils # (0-0.4) x10^3/uL D-Dimer < 0.19 (0.0-0.50) mg/L Sodium (137-145) mmol/L Potassium (3.5-5.1) mmol/L Chloride (98-107) mmol/L Carbon Dioxide (22-30) mmol/L Anion Gap (5-15) MEQ/L BUN (9-20) mg/dL Creatinine (0.66-1.25) mg/dL Estimated GFR ML/MIN Glucose (74-106) mg/dL Calcium (8.4-10.2) mg/dL Total Bilirubin (0.2-1.3) mg/dL AST (17-59) U/L ALT (0-50) U/L Alkaline Phosphatase (38-126) U/L Troponin I < 0.012 (0.000-0.034) ng/mL Serum Total Protein (6.3-8.2) g/dL Albumin (3.5-5.0) g/dL Urine Color Yellow (Yellow) Urine Appearance Clear (Clear) Urine pH 7.0 (4.6-8.0) Ur Specific [place] <=1.005 (1.005-1.030) Urine Protein Negative (Negative) Urine Glucose (UA) Negative (Negative) mg/dL Urine Ketones Negative (Negative) Urine Blood Negative (Negative) Urine Nitrite Negative (Negative) Urine Bilirubin Negative (Negative) Urine Urobilinogen 0.2 (0.2) mg/dL Ur Leukocyte Esterase Negative (Negative) U Hyaline Cast (Auto) NONE SEEN (0-2) /LPF Urine Microscopic RBC 0-2 (0-5) /HPF Urine Microscopic WBC 0-2 (0-5) /HPF Ur Epithelial Cells None Seen (None Seen) /HPF Urine Bacteria None Seen (None Seen) /HPF Urine Culture Reflexed NO (NO) 03/12/23 03/12/23 Range/Units 17:40 17:40 WBC 15.2 H (4.0-10.5) x10^3/uL RBC 4.45 (4.1-5.6) x10^6/uL Hgb 13.5 (12.5-18.0) g/dL Hct 40.9 L (42-50) % MCV 91.9 (78-100) fL MCH 30.3 (26-32) pg MCHC 33.0 (32-36) g/dL RDW 13.7 (11.5-14.0) % Plt Count 325 (150-450) x10^3/uL MPV 10.4 (7.5-11.0) fL Gran % 62.4 (36.0-66.0) % Immature Gran % (Auto) 0.4 (0.00-0.4) % Nucleat RBC Rel Count 0.0 (0.00-0.1) % Eos # (Auto) 0.40 (0-0.5) x10^3/uL Immature Gran # (Auto) 0.06 H (0.00-0.03) x10^3u/L Absolute Lymphs (auto) 4.30 (1.0-4.6) x10^3/uL Absolute Monos (auto) 0.86 (0.0-1.3) x10^3/uL Absolute Nucleated RBC 0.00 (0.00-0.01) x10^3u/L Lymphocytes % 28.4 (24.0-44.0) % Monocytes % 5.7 (0.0-12.0) % Eosinophils % 2.6 (0.00-5.0) % Basophils % 0.5 (0.0-0.4) % Absolute Granulocytes 9.45 H (1.4-6.9) x10^3/uL Basophils # 0.08 (0-0.4) x10^3/uL D-Dimer (0.0-0.50) mg/L Sodium 140 (137-145) mmol/L Potassium 3.7 (3.5-5.1) mmol/L Chloride 103 (98-107) mmol/L Carbon Dioxide 24 (22-30) mmol/L Anion Gap 16.4 H (5-15) MEQ/L BUN 15 (9-20) mg/dL Creatinine 1.12 (0.66-1.25) mg/dL Estimated GFR > 60.0 ML/MIN Glucose 108 H (74-106) mg/dL Calcium 10.0 (8.4-10.2) mg/dL Total Bilirubin 0.50 (0.2-1.3) mg/dL AST 30 (17-59) U/L ALT 29 (0-50) U/L Alkaline Phosphatase 80 (38-126) U/L Troponin I (0.000-0.034) ng/mL Serum Total Protein 8.4 H (6.3-8.2) g/dL Albumin 4.7 (3.5-5.0) g/dL Urine Color (Yellow) Urine Appearance (Clear) Urine pH (4.6-8.0) Ur Specific [place] (1.005-1.030) Urine Protein (Negative) Urine Glucose (UA) (Negative) mg/dL Urine Ketones (Negative) Urine Blood (Negative) Urine Nitrite (Negative) Urine Bilirubin (Negative) Urine Urobilinogen (0.2) mg/dL Ur Leukocyte Esterase (Negative) U Hyaline Cast (Auto) (0-2) /LPF Urine Microscopic RBC (0-5) /HPF Urine Microscopic WBC (0-5) /HPF Ur Epithelial Cells (None Seen) /HPF Urine Bacteria (None Seen) /HPF Urine Culture Reflexed (NO) - Progress Progress: improved Progress Note: 03/12/23 19:09 This patient's medical issue is 1 of moderate complexity. The level of complexity and the work-up performed is based on review of the patient's past medical history, review of the patient's medication list, review of the patient's drug allergy list, history present illness and physical findings on examination. The work-up includes twelve-lead EKG, D-dimer, troponin level, CBC, CMP, twelve-lead EKG. I reviewed the work-up results. There is no evidence of any acute, emergent medical issue. The patient will follow-up with his primary care provider as an outpatient. He is to continue taking his medication as prescribed. 03/12/23 19:11 03/12/23 19:12 Patient was reexamined just prior to discharge and he has no shortness of breath and no chest pain. Counseled pt/family regarding: lab results, diagnosis, need for follow-up Medical Desision Making - Diagnostic Testing Diagnostic test were ordered, analyzed, and reviewed by me: Yes - Risk of complications Minimal Risk: Minimal risk of morbidity - Departure Departure Disposition: Home Clinical Impression: Chest pain, Anxiety about health Condition: Stable Critical Care Time: No Referrals: CLAUDETTE PECK [Primary Care Provider] - Follow up/PCP as directed Additional Instructions: Stop smoking. Take your medication as prescribed. Follow-up with Dr. Peck's office tomorrow morning, 03/13/2023 to make a follow-up appointment for further evaluation and management in the next 5 to 7 days.
[2023-03-12] MEDS ORDERED: BABY ASPIRIN 81 MG CHEW PO ONE (17:31)
[2023-03-12 17:55] LABS: Absolute Neutrophil Ct (ANC) 9.45 x10^3/uL (1.4-6.9); BASOPHIL % 0.5 % (0.0-0.4); Basophil (Absolute #) 0.08 x10^3/uL (0-0.4); Eosinophil % 2.6 % (0.00-5.0); Hematocrit 40.9 % (42-50); Hemoglobin 13.5 g/dL (12.5-18.0); IMMATURE GRAN # 0.06 x10^3u/L (0.00-0.03); IMMATURE GRAN % 0.4 % (0.00-0.4); Lymphocytes % 28.4 % (24.0-44.0); Mean Cell Volume 91.9 fL (78-100); Mean Corpuscular Hemoglobin 30.3 pg (26-32); Mean Platelet Volume 10.4 fL (7.5-11.0); Monocyte (Absolute #) 0.86 x10^3/uL (0.0-1.3); Monocytes % 5.7 % (0.0-12.0); Neutrophil % 62.4 % (36.0-66.0); Platelet Count 325 x10^3/uL (150-450); Red Blood Count 4.45 x10^6/uL (4.1-5.6); Red Cell Distribution Width 13.7 % (11.5-14.0); White Blood Count 15.2 x10^3/uL (4.0-10.5)
[2023-03-12 18:16] LABS: ALBUMIN 4.7 g/dL (3.5-5.0); ALKALINE PHOSPHATASE 80 U/L (38-126); ANION GAP 16.4 MEQ/L (5-15); BLOOD UREA NITROGEN 15 mg/dL (9-20); CHLORIDE 103 mmol/L (98-107); Carbon Dioxide 24 mmol/L (22-30); Creatinine 1 1.12 mg/dL (0.66-1.25); EST GLOMERULAR FILTRATION RATE > 60.0 ML/MIN; Glucose 108 mg/dL (74-106); Potassium 3.7 mmol/L (3.5-5.1); SGOT/AST 30 U/L (17-59); SGPT/ALT 29 U/L (0-50); SODIUM 140 mmol/L (137-145); Total Protein 8.4 g/dL (6.3-8.2)
[2023-03-12 18:19] VITALS: BP 145/82; PULSE 79; O2SAT 99
[2023-03-12 18:30] LABS: Appearance Clear (Clear); Bacteria None Seen /HPF (None Seen); Bilirubin Negative (Negative); Blood Negative (Negative); Epithelial Cells None Seen /HPF (None Seen); Glucose, Urine Negative (Negative); Hyaline Casts NONE SEEN /LPF (0-2); Ketones Negative (Negative); Leukocyte Esterase Negative (Negative); Nitrite Negative (Negative); Protein,Urine Dip Negative (Negative); RBC 0-2 /HPF (0-5); Specific Gravity <=1.005 (1.005-1.030); Urobilinogen 0.2 mg/dL (0.2); WBC 0-2 /HPF (0-5)
[2023-03-12 18:46] LABS: ADD URINE CULTURE? NO (NO)
== END 2023-03-12 19:16 | disposition home or self-care (01) ==
LOC: ED 17:12
DX: R07.9 Chest pain, unspecified (principal); F45.9 Somatoform disorder, unspecified; I10 Essential (primary) hypertension; Z79.899 Other long term (current) drug therapy; Z72.0 Tobacco use
CPT/HCPCS: 36000; 36415; 80053; 81001; 84484; 85025; 85379; 93005; 93041; 94760; 99284; A9270-GY

== ENCOUNTER 2023-03-14 11:22 | Emergency (ER) | payer OTHER ==
--- NOTE | 2023-03-14 11:32 | ERPHSYRPT ---
- History of Present Illness Time Seen by Provider: 03/14/23 11:32 Source: patient Exam Limitations: no limitations Physician History: This is 42-year-old white male patient has a history of anxiety and hypertension. He is a patient of Dr. Peck. Patient was here on 03/12/2023 with complaint of chest pain. Work-up on that date was negative. Patient is now here with complaint of dizziness. He denies shortness of breath. He denies history of coronary disease. Patient is a daily smoker of cigarettes. Patient denies head trauma. Timing/Duration: today Severity: mild Character of Deficits: none Deficits: no difficulties Baseline/Normal Cognition: alert 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 Current Cognition: alert 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 Baseline Gait: walks w/o assistance Associated Symptoms: other (Dizziness) Allergies/Adverse Reactions: No Known Drug Allergies Allergy (Verified 03/14/23 11:52) Home Medications: Hydroxyzine HCl 25 mg [Atarax 25 mg] 1 tab PO HS 07/25/22 [History] Benazepril HCl 20 mg PO DAILY 03/12/23 [History] Clonidine HCl 0.1 mg [Clonidine 0.1 mg Tablet] 0.1 mg PO TID 03/12/23 [History] Hx Tetanus, Diphtheria Vaccination/Date Given: (unknown) Hx Influenza Vaccination/Date Given: No Hx Pneumococcal Vaccination/Date Given: No Travel Risk - International Travel Have you traveled outside of the country in past 3 weeks: No - Coronavirus Screening Are you exhibiting any of the following symptoms?: No Close contact with a COVID-19 positive Pt in past 14-21 Days: No - Vaccine Status Have you recieved a Covid-19 vaccination: Yes 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[employer] - Review of Systems Constitutional: No Symptoms Eyes: No Symptoms Ears, Nose, & Throat: No Symptoms Respiratory: No Symptoms Cardiac: No Symptoms Abdominal/Gastrointestinal: No Symptoms Genitourinary Symptoms: No Symptoms Musculoskeletal: No Symptoms Skin: No Symptoms Neurological: Dizziness Psychological: No Symptoms Endocrine: No Symptoms Hematologic/Lymphatic: No Symptoms Immunological/Allergic: No Symptoms All Other Systems: Reviewed and Negative - Past Medical History Pertinent Past Medical History: No Neurological History: No Pertinent History ENT History: No Pertinent History Cardiac History: Hypertension Respiratory History: No Pertinent History Endocrine Medical History: No Pertinent History Musculoskeletal History: No Pertinent History GI Medical History: No Pertinent History History: No Pertinent History Psycho-Social History: Anxiety Male Reproductive Disorders: No Pertinent History - Past Surgical History Past Surgical History: No - Social History Smoking Status: Current every day smoker How long have you smoked: 25 yrs Exposure to second hand smoke: No Drug Use: none Patient Lives Alone: No - Nursing Vital Signs Nursing Vital Signs: Initial Vital Signs Temperature 98.5 F 03/14/23 11:39 Pulse Rate 72 03/14/23 11:39 Blood Pressure 146/82 03/14/23 11:39 O2 Sat by Pulse Oximetry 100 03/14/23 11:39 Pain Scale Pain Intensity 2 - [place] Coma Scale Best Eye Response (Zhen): (4) open spontaneously Best Verbal Response (Zhen): (5) oriented Best Motor Response (Zhen): (6) obeys commands [place] Total: 15 - Physical Exam General Appearance: no apparent distress, alert, anxiety Eye Exam: bilateral eye: normal inspection, PERRL, EOMI Ears, Nose, Throat Exam: normal ENT inspection, moist mucous membranes Neck Exam: normal inspection, non-tender, supple, full range of motion Respiratory: normal breath sounds, lungs clear, airway intact, No chest tenderness, No respiratory distress Cardiovascular: regular rate/rhythm, normal heart sounds, normal peripheral pulses Gastrointestinal: soft, normal bowel sounds, No tenderness Rectal Exam: not done Back Exam: normal inspection, normal range of motion, No CVA tenderness, No vertebral tenderness Extremity Exam: normal inspection, normal range of motion, pelvis stable Mental Status: alert, 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, 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 Exam: normal hearing, normal speech, PERRL Coordination/Gait: normal finger to nose, normal gait, normal cerebellar function Motor/Sensory: no motor deficit, no sensory deficit, no pronator drift Skin Exam: normal color, warm, dry SpO2 Interpretation: normal O2 Delivery: Room Air - Course Nursing assessment & vital signs reviewed: Yes EKG Interpreted by Me: RATE (79), Sinus Rhythm, NORMAL AXIS, NORMAL INTERVALS, NORMAL QRS, NORMAL ST-T, Other (No acute ischemic changes on today's twelve-lead EKG.) Ordered Tests: Active Orders 24 hr Category Date Time Status EKG-ER Only STAT Care 03/14/23 11:33 Active HEAD WITHOUT CONTRAST [CT] Stat Exams 03/14/23 11:32 Completed CBC W DIFF Stat Lab 03/14/23 11:32 Ordered CMP Stat Lab 03/14/23 11:32 Completed ETHYL ALCOHOL Stat Lab 03/14/23 11:32 Completed UA W/RFX UR CULTURE Stat Lab 03/14/23 11:30 Completed Urine Triage Profile Stat Lab 03/14/23 11:30 Completed Lab/Rad Data: Laboratory Result Diagrams 03/14/23 11:32 Laboratory Results 03/14/23 03/14/23 03/14/23 Range/Units 11:32 11:30 11:30 Sodium 138 (137-145) mmol/L Potassium 5.0 D (3.5-5.1) mmol/L Chloride 101 (98-107) mmol/L Carbon Dioxide 27 (22-30) mmol/L Anion Gap 15.7 H (5-15) MEQ/L BUN 13 (9-20) mg/dL Creatinine 1.00 (0.66-1.25) mg/dL Estimated GFR > 60.0 ML/MIN Glucose 98 (74-106) mg/dL Calcium 9.9 (8.4-10.2) mg/dL Total Bilirubin 0.70 (0.2-1.3) mg/dL AST 31 (17-59) U/L ALT 29 (0-50) U/L Alkaline Phosphatase 61 (38-126) U/L Serum Total Protein 8.4 H (6.3-8.2) g/dL Albumin 4.8 (3.5-5.0) g/dL Urine Color Yellow (Yellow) Urine Appearance Clear (Clear) Urine pH 7.0 (4.6-8.0) Ur Specific [place] <=1.005 (1.005-1.030) Urine Protein Negative (Negative) Urine Glucose (UA) Negative (Negative) mg/dL Urine Ketones Negative (Negative) Urine Blood Negative (Negative) Urine Nitrite Negative (Negative) Urine Bilirubin Negative (Negative) Urine Urobilinogen 0.2 (0.2) mg/dL Ur Leukocyte Esterase Negative (Negative) U Hyaline Cast (Auto) NONE SEEN (0-2) /LPF Urine Microscopic RBC 0-2 (0-5) /HPF Urine Microscopic WBC 0-2 (0-5) /HPF Ur Epithelial Cells None Seen (None Seen) /HPF Urine Bacteria None Seen (None Seen) /HPF Urine Culture Reflexed NO (NO) Urine Opiates Level NEGATIVE (NEGATIVE) Ur Methadone NEGATIVE (NEGATIVE) Urine Barbiturates NEGATIVE (NEGATIVE) Ur Phencyclidine (PCP) NEGATIVE (NEGATIVE) Urine Amphetamine NEGATIVE (NEGATIVE) U Benzodiazepine Level NEGATIVE (NEGATIVE) Urine Cocaine NEGATIVE (NEGATIVE) Urine Marijuana (THC) POSITIVE (NEGATIVE) Ethyl Alcohol < 10 (0-10) mg/dL - Progress Progress Note: 03/14/23 12:15 CT scan of the head without contrast is a normal study. It was interpreted by the radiologist and I reviewed the impression. Next This patient's medical history is 1 of moderate complexity. The level complexit y and the work-up performed was based on review of the patient's past medical history, reviewed the patient's medication list, reviewed with the patient drug allergy list, history of present illness and physical findings on examination. Work-up in this patient includes a urinalysis, twelve-lead EKG, CT scan of the head, CBC, CMP. Counseled pt/family regarding: lab results, diagnosis, need for follow-up, rad results Medical Desision Making - Diagnostic Testing Radiological Interpretation: Reviewed by me, Teleradiologist Report - Risk of complications Minimal Risk: Minimal risk of morbidity - Departure Departure Disposition: Home Clinical Impression: Dizziness Condition: Stable Critical Care Time: No Referrals: CLAUDETTE PECK [Primary Care Provider] - Follow up/PCP as directed Additional Instructions: Drink plenty of liquids. Avoid alcohol and illicit drugs. Avoid marijuana use. Keep your appointment with Dr. Peck tomorrow.
[2023-03-14 11:41] VITALS: BP 146/82; PULSE 72; O2SAT 100
[2023-03-14 11:47] LABS: Appearance Clear (Clear); Bacteria None Seen /HPF (None Seen); Bilirubin Negative (Negative); Blood Negative (Negative); Epithelial Cells None Seen /HPF (None Seen); Glucose, Urine Negative (Negative); Hyaline Casts NONE SEEN /LPF (0-2); Ketones Negative (Negative); Leukocyte Esterase Negative (Negative); Nitrite Negative (Negative); Protein,Urine Dip Negative (Negative); RBC 0-2 /HPF (0-5); Specific Gravity <=1.005 (1.005-1.030); Urobilinogen 0.2 mg/dL (0.2); WBC 0-2 /HPF (0-5)
[2023-03-14 11:57] LABS: Absolute Neutrophil Ct (ANC) 7.18 x10^3/uL (1.4-6.9); BASOPHIL % 0.8 % (0.0-0.4); Eosinophil % 3.9 % (0.00-5.0); Eosinophil (Absolute #) 0.48 x10^3/uL (0-0.5); Hemoglobin 13.7 g/dL (12.5-18.0); IMMATURE GRAN # 0.05 x10^3u/L (0.00-0.03); IMMATURE GRAN % 0.4 % (0.00-0.4); Lymphocyte (Absolute #) 3.51 x10^3/uL (1.0-4.6); Lymphocytes % 28.5 % (24.0-44.0); Mean Cell Volume 92.5 fL (78-100); Mean Corpuscular Hemoglobin 30.2 pg (26-32); Mean Corpuscular Hgb Concent. 32.6 g/dL (32-36); Mean Platelet Volume 9.8 fL (7.5-11.0); Monocyte (Absolute #) 0.98 x10^3/uL (0.0-1.3); Neutrophil % 58.4 % (36.0-66.0); Platelet Count 321 x10^3/uL (150-450); Red Blood Count 4.54 x10^6/uL (4.1-5.6); Red Cell Distribution Width 13.6 % (11.5-14.0); White Blood Count 12.3 x10^3/uL (4.0-10.5)
--- NOTE | 2023-03-14 12:07 | XRAY ---
Indication: Dizziness. Hypertension. Multiple contiguous axial images obtained through the head without contrast. Comparison: None Normal appearing brain parenchyma, ventricles, and bony calvarium. Visualized paranasal sinuses and mastoid air cells are clear. Impression: Normal CT head without contrast exam.
[2023-03-14 12:12] LABS: Amphetamine,Urine NEGATIVE (NEGATIVE); Barbiturate,Urine NEGATIVE (NEGATIVE); Benzodiazepine,Urine NEGATIVE (NEGATIVE); Cocaine,Urine NEGATIVE (NEGATIVE); Methadone,Urine NEGATIVE (NEGATIVE); Opiate,Urine NEGATIVE (NEGATIVE); PCP,Urine NEGATIVE (NEGATIVE); THC,Urine POSITIVE (NEGATIVE)
[2023-03-14 12:18] LABS: ALBUMIN 4.8 g/dL (3.5-5.0); ALKALINE PHOSPHATASE 61 U/L (38-126); ANION GAP 15.7 MEQ/L (5-15); BLOOD UREA NITROGEN 13 mg/dL (9-20); CHLORIDE 101 mmol/L (98-107); Calcium 9.9 mg/dL (8.4-10.2); Carbon Dioxide 27 mmol/L (22-30); EST GLOMERULAR FILTRATION RATE > 60.0 ML/MIN; ETHYL ALCOHOL < 10 mg/dL (0-10); Glucose 98 mg/dL (74-106); SGOT/AST 31 U/L (17-59); SGPT/ALT 29 U/L (0-50); SODIUM 138 mmol/L (137-145); Total Protein 8.4 g/dL (6.3-8.2)
[2023-03-14 12:19] LABS: ADD URINE CULTURE? NO (NO)
== END 2023-03-14 12:40 | disposition home or self-care (01) ==
LOC: ED 11:22
DX: R42 Dizziness and giddiness (principal); I10 Essential (primary) hypertension; Z79.899 Other long term (current) drug therapy; Z72.0 Tobacco use
CPT/HCPCS: 36000; 36415; 70450; 80053; 80307; 81001; 82077; 85025; 93005; 99284

== ENCOUNTER 2023-03-26 12:44 | Emergency (ER) | payer OTHER ==
[2023-03-26 13:31] VITALS: O2SAT 96
[2023-03-26 13:54] LABS: BASOPHIL % 0.4 % (0.0-0.4); Basophil (Absolute #) 0.06 x10^3/uL (0-0.4); Eosinophil % 1.4 % (0.00-5.0); Eosinophil (Absolute #) 0.19 x10^3/uL (0-0.5); Hematocrit 41.8 % (42-50); Hemoglobin 13.9 g/dL (12.5-18.0); IMMATURE GRAN # 0.05 x10^3u/L (0.00-0.03); IMMATURE GRAN % 0.4 % (0.00-0.4); Lymphocyte (Absolute #) 3.08 x10^3/uL (1.0-4.6); Lymphocytes % 22.5 % (24.0-44.0); Mean Cell Volume 92.3 fL (78-100); Mean Corpuscular Hemoglobin 30.7 pg (26-32); Mean Corpuscular Hgb Concent. 33.3 g/dL (32-36); Mean Platelet Volume 9.7 fL (7.5-11.0); Monocyte (Absolute #) 0.72 x10^3/uL (0.0-1.3); Monocytes % 5.3 % (0.0-12.0); Platelet Count 335 x10^3/uL (150-450); Red Blood Count 4.53 x10^6/uL (4.1-5.6); Red Cell Distribution Width 13.3 % (11.5-14.0); White Blood Count 13.7 x10^3/uL (4.0-10.5)
--- NOTE | 2023-03-26 14:06 | ERPHSYRPT ---
- History of Present Illness Time Seen by Provider: 03/26/23 13:00 Source: patient Patient Subjective Stated Complaint: C/O Dizziness with some right sided chest pain. Patient states he saw Dr. Lopez last week for these things and was started on meclizine and ibuprofen. Triage Nursing Assessment: Patient ambulated back to ER without any difficulties. He is alert and oriented. He is anxious, speaking rapidly. No SOB. Skin tone normal. Physician History: Patient is a 42-year-old male presents to our ED with right-sided pleuritic chest pain. Patient currently on meclizine for peripheral vertigo diagnosed by his primary care physician. Patient appears somewhat anxious. Patient's pleuritic chest pain started today. Pain only occurs with deep breaths. Patient denies shortness of breath. No trauma. No fever. No nausea vomiting or diaphoresis. Symptoms are mild to moderate in intensity. No specific worsening improving factors. Patient voices no other complaints or concerns at this time. Portions of this note were created with voice recognition technology. There may be grammatical, spelling, punctuation or sound alike errors Timing/Duration: today Severity: mild Modifying Factors: Improves With: other (Deep breath reproduces pain) Associated Symptoms: denies symptoms Allergies/Adverse Reactions: No Known Drug Allergies Allergy (Verified 03/26/23 12:52) Home Medications: Hydroxyzine HCl 25 mg [Atarax 25 mg] 1 tab PO HS 07/25/22 [History] Benazepril HCl 20 mg PO DAILY 03/12/23 [History] Clonidine HCl 0.1 mg [Clonidine 0.1 mg Tablet] 0.1 mg PO TID 03/12/23 [History] Meclizine HCl 25 mg [Antivert 25 mg] 1 tab PO TID 03/26/23 [History] Hx Tetanus, Diphtheria Vaccination/Date Given: Yes Hx Influenza Vaccination/Date Given: No Hx Pneumococcal Vaccination/Date Given: No Immunizations Up to Date: Yes Travel Risk - International Travel Have you traveled outside of the country in past 3 weeks: No - Coronavirus Screening Are you exhibiting any of the following symptoms?: No Close contact with a COVID-19 positive Pt in past 14-21 Days: No - Vaccine Status Have you recieved a Covid-19 vaccination: Yes 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[employer] - Review of Systems Constitutional: No Symptoms, No Fever, No Chills Eyes: No Symptoms Ears, Nose, & Throat: No Symptoms Respiratory: No Symptoms, No Cough, No Dyspnea Cardiac: No Symptoms, No Chest Pain, No Edema, No Syncope Abdominal/Gastrointestinal: No Symptoms, No Abdominal Pain, No Nausea, No Vomiting, No Diarrhea Genitourinary Symptoms: No Symptoms, No Dysuria Musculoskeletal: No Symptoms, No Back Pain, No Neck Pain Skin: No Symptoms, No Rash Neurological: No Symptoms, No Dizziness, No Focal Weakness, No Sensory Changes Psychological: No Symptoms Endocrine: No Symptoms Hematologic/Lymphatic: No Symptoms Immunological/Allergic: No Symptoms All Other Systems: Reviewed and Negative - Past Medical History Pertinent Past Medical History: Yes Neurological History: No Pertinent History ENT History: No Pertinent History Cardiac History: Hypertension Respiratory History: No Pertinent History Endocrine Medical History: No Pertinent History Musculoskeletal History: No Pertinent History GI Medical History: No Pertinent History History: No Pertinent History Psycho-Social History: Anxiety Male Reproductive Disorders: No Pertinent History - Past Surgical History Past Surgical History: No - Social History Smoking Status: Current every day smoker How long have you smoked: 25 yrs Exposure to second hand smoke: No Drug Use: none Patient Lives Alone: No - Nursing Vital Signs Nursing Vital Signs: Initial Vital Signs Temperature 98 F 03/26/23 12:55 Pulse Rate 84 03/26/23 12:55 Respiratory Rate 24 03/26/23 12:55 Blood Pressure 146/89 03/26/23 12:55 O2 Sat by Pulse Oximetry 100 03/26/23 12:55 Pain Scale Pain Intensity 6 - Physical Exam General Appearance: no apparent distress, alert Eye Exam: PERRL/EOMI, eyes nml inspection Ears, Nose, Throat Exam: normal ENT inspection, TMs normal, pharynx normal, moist mucous membranes Neck Exam: normal inspection, non-tender, supple, full range of motion Respiratory Exam: normal breath sounds, lungs clear, No respiratory distress Cardiovascular Exam: regular rate/rhythm, normal heart sounds, normal peripheral pulses Gastrointestinal/Abdomen Exam: soft, normal bowel sounds, No tenderness, No mass Back Exam: normal inspection, normal range of motion, No CVA tenderness, No vertebral tenderness Extremity Exam: normal inspection, normal range of motion, pelvis stable Neurologic Exam: alert, 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, cooperative, normal mood/affect, nml cerebellar function, nml station & gait, sensation nml, No motor deficits Skin Exam: normal color, warm, dry, No rash Lymphatic Exam: No adenopathy SpO2 Interpretation: normal SpO2: 96 O2 Delivery: Room Air - Course Nursing assessment & vital signs reviewed: Yes EKG Interpreted by Me: RATE (76), Sinus Rhythm, NORMAL AXIS, NORMAL INTERVALS - Radiology Exams Chest X-ray Interpretation: Teleradiologist Report (No acute cardiopulmonary abnormalities observed) Ordered Tests: Active Orders 24 hr Category Date Time Status AMA [Release AMA] OM.NOW Care 03/26/23 16:43 Active Mangle Press Catcher STAT Care 03/26/23 13:26 Active EKG-ER Only STAT Care 03/26/23 13:26 Active IV Insertion STAT Care 03/26/23 13:26 Active Pulse Oximetry (ED) STAT Care 03/26/23 13:26 Active CHEST 1 VIEW (PORTABLE) Stat Exams 03/26/23 13:26 Completed CBC W DIFF Stat Lab 03/26/23 13:50 Completed CMP Stat Lab 03/26/23 13:50 Completed D-DIMER QUANTITATIVE Stat Lab 03/26/23 13:50 Completed NT PRO BNPII Stat Lab 03/26/23 13:50 Completed TROPONIN Q4H Lab 03/26/23 13:50 Completed TROPONIN Q4H Lab 03/26/23 15:48 Completed TROPONIN Q4H Lab 03/26/23 21:30 Ordered Lab/Rad Data: Laboratory Result Diagrams 03/26/23 13:50 03/26/23 13:50 Laboratory Results 03/26/23 03/26/23 03/26/23 Range/Units 15:48 13:50 13:50 WBC (4.0-10.5) x10^3/uL RBC (4.1-5.6) x10^6/uL Hgb (12.5-18.0) g/dL Hct (42-50) % MCV (78-100) fL MCH (26-32) pg MCHC (32-36) g/dL RDW (11.5-14.0) % Plt Count (150-450) x10^3/uL MPV (7.5-11.0) fL Gran % (36.0-66.0) % Immature Gran % (Auto) (0.00-0.4) % Nucleat RBC Rel Count (0.00-0.1) % Eos # (Auto) (0-0.5) x10^3/uL Immature Gran # (Auto) (0.00-0.03) x10^3u/L Absolute Lymphs (auto) (1.0-4.6) x10^3/uL Absolute Monos (auto) (0.0-1.3) x10^3/uL Absolute Nucleated RBC (0.00-0.01) x10^3u/L Lymphocytes % (24.0-44.0) % Monocytes % (0.0-12.0) % Eosinophils % (0.00-5.0) % Basophils % (0.0-0.4) % Absolute Granulocytes (1.4-6.9) x10^3/uL Basophils # (0-0.4) x10^3/uL D-Dimer < 0.19 (0.0-0.50) mg/L Sodium (137-145) mmol/L Potassium (3.5-5.1) mmol/L Chloride (98-107) mmol/L Carbon Dioxide (22-30) mmol/L Anion Gap (5-15) MEQ/L BUN (9-20) mg/dL Creatinine (0.66-1.25) mg/dL Estimated GFR ML/MIN Glucose (74-106) mg/dL Calcium (8.4-10.2) mg/dL Total Bilirubin (0.2-1.3) mg/dL AST (17-59) U/L ALT (0-50) U/L Alkaline Phosphatase (38-126) U/L Troponin I < 0.012 < 0.012 (0.000-0.034) ng/mL NT-Pro-B Natriuret Pep (<300) pg/mL Serum Total Protein (6.3-8.2) g/dL Albumin (3.5-5.0) g/dL 03/26/23 03/26/23 Range/Units 13:50 13:50 WBC 13.7 H (4.0-10.5) x10^3/uL RBC 4.53 (4.1-5.6) x10^6/uL Hgb 13.9 (12.5-18.0) g/dL Hct 41.8 L (42-50) % MCV 92.3 (78-100) fL MCH 30.7 (26-32) pg MCHC 33.3 (32-36) g/dL RDW 13.3 (11.5-14.0) % Plt Count 335 (150-450) x10^3/uL MPV 9.7 (7.5-11.0) fL Gran % 70.0 H (36.0-66.0) % Immature Gran % (Auto) 0.4 (0.00-0.4) % Nucleat RBC Rel Count 0.0 (0.00-0.1) % Eos # (Auto) 0.19 (0-0.5) x10^3/uL Immature Gran # (Auto) 0.05 H (0.00-0.03) x10^3u/L Absolute Lymphs (auto) 3.08 (1.0-4.6) x10^3/uL Absolute Monos (auto) 0.72 (0.0-1.3) x10^3/uL Absolute Nucleated RBC 0.00 (0.00-0.01) x10^3u/L Lymphocytes % 22.5 L (24.0-44.0) % Monocytes % 5.3 (0.0-12.0) % Eosinophils % 1.4 (0.00-5.0) % Basophils % 0.4 (0.0-0.4) % Absolute Granulocytes 9.60 H (1.4-6.9) x10^3/uL Basophils # 0.06 (0-0.4) x10^3/uL D-Dimer (0.0-0.50) mg/L Sodium 137 (137-145) mmol/L Potassium 4.6 (3.5-5.1) mmol/L Chloride 103 (98-107) mmol/L Carbon Dioxide 23 (22-30) mmol/L Anion Gap 15.5 H (5-15) MEQ/L BUN 17 (9-20) mg/dL Creatinine 1.10 (0.66-1.25) mg/dL Estimated GFR > 60.0 ML/MIN Glucose 107 H (74-106) mg/dL Calcium 9.6 (8.4-10.2) mg/dL Total Bilirubin 0.60 (0.2-1.3) mg/dL AST 27 (17-59) U/L ALT 22 (0-50) U/L Alkaline Phosphatase 60 (38-126) U/L Troponin I (0.000-0.034) ng/mL NT-Pro-B Natriuret Pep 61.0 (<300) pg/mL Serum Total Protein 8.1 (6.3-8.2) g/dL Albumin 4.5 (3.5-5.0) g/dL - Progress Progress: improved Progress Note: 42-year-old male presents to our ED with pleuritic chest pain. Patient work-up initially negative. Second troponin pending. Patient decided not to wait for his second troponin and decided to leave AGAINST MEDICAL ADVICE. Physical exam was unremarkable. EKG showed normal sinus rhythm. Chest x-ray negative for acute pathology. CBC reveals a leukocytosis of 13. CMP negative. D-dimer negative. BNP negative. Troponin negative. Second troponin negative. Tachycardia troponin resulted after patient declared to leave AMA. Patient discharge AMA. Patient is of sound mind. Patient is appropriate to make informed and independent medical decisions. Patient understands that leaving AGAINST MEDICAL ADVICE can result in delayed diagnosis, increased risk of morbidity, mortality, short and long-term disability including . In spite of these risks, patient has decided to leave AGAINST MEDICAL ADVICE. Patient understands that he may return to our ED at any point if he reconsiders. Patient agrees to follow-up with his primary care doctor within 48 hours for reevaluation. Patient voices no other complaints or concerns at this time. We will release patient AGAINST MEDICAL ADVICE per their request. Complexity of problem addressed is moderate, new diagnosis with uncertain pro gnosis. Complex of data reviewed and analyzed is moderate. Test ordered and analyzed by Dr. Garcia. Risk of complication and or risk morbidity/mortality patient management is moderate. Patient left AGAINST MEDICAL ADVICE. Therefore unable to determine risks with certainty. Patient agrees to follow-up with primary care doctor within 40 hours for reevaluation. Portions of this note were created with voice recognition technology. There may be grammatical, spelling, punctuation or sound alike errors 03/26/23 16:47 Counseled pt/family regarding: lab results, diagnosis, need for follow-up, rad results - Departure Departure Disposition: AMA Clinical Impression: Pleuritic chest pain Condition: Stable Critical Care Time: No Referrals: CLAUDETTE LOPEZ [Primary Care Provider] - Follow up/PCP as directed Additional Instructions: Discharge/Care Plan ALESIADALYMATTIMARLI GREGG was seen on 03/26/23 in the Emergency Room. The patient was counseled regarding Diagnosis,Lab results, Imaging studies, need for follow up and when to return to the Emergency Room. Prescriptions given: Discharge Note I have spoken with the patient and/or caregivers. I have explained the patient's condition, diagnosis and treatment plan based on the information available to me at this time. I have answered the patient's and/or caregiver's questions and addressed any concerns. The patient and/or caregivers have as good understanding of the patient's diagnosis, condition and treatment plan as can be expected at this point. The vital signs have been stable. The patient's condition is stable and appropriate for discharge from the emergency department. The patient will pursue further outpatient evaluation with the primary care physician or other designated or consulting physician as outlined in the eloisa patricia instructions. The patient and/or caregivers are agreeable to this plan of care and follow-up instructions have been explained in detail. The patient and/or caregivers have received these instruction. The patient/and or caregivers are aware that any significant change in condition or worsening of symptoms should prompt an immediate return to this or the closest emergency department or call 911.
--- NOTE | 2023-03-26 14:07 | XRAY ---
CLINICAL HISTORY:pain COMPARISON:None; TECHNIQUES:CR chest- 1 view- AP portable view; FINDINGS: Both lung cedeño are clear. No area of abnormal opacity is noted. Both hilar shadows appear normal. The trachea is central. Cardiac borders are well visualized. Heart size is normal. The right costophrenic angle is normal. The left costophrenic angle is partly obscured by the wires, is grossly unremarkable. The bony rib cage appears normal. No obvious sclerotic or lucent lesion is noted. IMPRESSION: No acute cardiopulmonary abnormality was detected. Electronically Signed by: Anai Lorenzana MD. (03/26/2023 13:04:20 EMERGENCY MANAGEMENT SPECIALIST)
[2023-03-26 14:09] VITALS: BP 119/77; PULSE 64
[2023-03-26 14:15] LABS: ALBUMIN 4.5 g/dL (3.5-5.0); ALKALINE PHOSPHATASE 60 U/L (38-126); ANION GAP 15.5 MEQ/L (5-15); BLOOD UREA NITROGEN 17 mg/dL (9-20); CHLORIDE 103 mmol/L (98-107); Calcium 9.6 mg/dL (8.4-10.2); Carbon Dioxide 23 mmol/L (22-30); EST GLOMERULAR FILTRATION RATE > 60.0 ML/MIN; Glucose 107 mg/dL (74-106); Potassium 4.6 mmol/L (3.5-5.1); SGOT/AST 27 U/L (17-59); SGPT/ALT 22 U/L (0-50); SODIUM 137 mmol/L (137-145); Total Protein 8.1 g/dL (6.3-8.2)
== END 2023-03-26 16:41 | disposition left against medical advice (07) ==
LOC: ED 12:44
DX: R07.81 Pleurodynia (principal); Z79.899 Other long term (current) drug therapy; Z72.0 Tobacco use
CPT/HCPCS: 36415; 71045; 80053; 83880; 84484; 85025; 85379; 93005; 93041; 94760; 99284

== ENCOUNTER 2023-04-17 12:59 | Emergency (ER) | payer OTHER ==
[2023-04-17 13:22] VITALS: O2SAT 100
--- NOTE | 2023-04-17 13:32 | ERPHSYRPT ---
- History of Present Illness Source: patient Exam Limitations: no limitations Patient Subjective Stated Complaint: Patient c/o a throbbing area to his back. Patient states he noticed a "hump" on his back Saturday. He went to the [facility] on Saturday. States he has a doctor's appointment with Dr. Peck in 2 days on Saturday and that he has an ultrasound set up for Saturday. He is in the ER today related to the throbbing pain in his back. Triage Nursing Assessment: Patient ambulated back to ER without difficulties. He is alert and oriented; anxious. NO SOB. Skin tone normal. Patient does have a small protrusion to his mid/upper back just right of his spine. The area is skin tone in color; no redness or warmth noted to area. SKin is intact to area. Physician History: 42 yo WM w R back lesion x 4 days. Pt has been to [facility] and US has been ordered for next week. He denies trauma/fever/discharge/pain. Timing/Duration: day(s) (4 days) Severity: mild Location: other (R posterior thorax) Possible Causes: no cause identified Associated Symptoms: denies symptoms Allergies/Adverse Reactions: No Known Drug Allergies Allergy (Verified 04/17/23 13:09) Home Medications: Hydroxyzine HCl 25 mg [Atarax 25 mg] 1 tab PO HS 07/25/22 [History] Benazepril HCl 20 mg PO DAILY 03/12/23 [History] Clonidine HCl 0.1 mg [Clonidine 0.1 mg Tablet] 0.1 mg PO TID 03/12/23 [History] Meclizine HCl 25 mg [Antivert 25 mg] 1 tab PO TID 03/26/23 [History] Hx Tetanus, Diphtheria Vaccination/Date Given: Yes Hx Influenza Vaccination/Date Given: No Hx Pneumococcal Vaccination/Date Given: No Immunizations Up to Date: Yes Travel Risk - International Travel Have you traveled outside of the country in past 3 weeks: No - Coronavirus Screening Are you exhibiting any of the following symptoms?: No Close contact with a COVID-19 positive Pt in past 14-21 Days: No - Vaccine Status Have you recieved a Covid-19 vaccination: Yes 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: [employer] - Review of Systems Constitutional: No Symptoms Eyes: No Symptoms Ears, Nose, & Throat: No Symptoms Respiratory: No Symptoms Cardiac: No Symptoms Abdominal/Gastrointestinal: No Symptoms Genitourinary Symptoms: No Symptoms Musculoskeletal: No Symptoms Psychological: No Symptoms Endocrine: No Symptoms Hematologic/Lymphatic: No Symptoms Immunological/Allergic: No Symptoms - Past Medical History Pertinent Past Medical History: Yes Neurological History: No Pertinent History ENT History: No Pertinent History Cardiac History: Hypertension Respiratory History: No Pertinent History Endocrine Medical History: No Pertinent History Musculoskeletal History: No Pertinent History GI Medical History: No Pertinent History History: No Pertinent History Psycho-Social History: Anxiety Male Reproductive Disorders: No Pertinent History - Past Surgical History Past Surgical History: No - Social History Smoking Status: Current every day smoker How long have you smoked: 25 yrs Exposure to second hand smoke: No Drug Use: none Patient Lives Alone: No - Nursing Vital Signs Nursing Vital Signs: Initial Vital Signs Pulse Rate 70 04/17/23 13:08 Respiratory Rate 18 04/17/23 13:08 Blood Pressure 149/92 04/17/23 13:08 O2 Sat by Pulse Oximetry 100 04/17/23 13:08 Pain Scale Pain Intensity 6 Hypertensive - Physical Exam General Appearance: no apparent distress Eye Exam: PERRL/EOMI, eyes nml inspection Ears, Nose, Throat Exam: normal ENT inspection, TMs normal, pharynx normal, moist mucous membranes Neck Exam: normal inspection, non-tender, supple, full range of motion, No meningismus, No mass, No Brudzinski, No Kernig's, No carotid bruit Respiratory Exam: normal breath sounds, lungs clear, airway intact, No respiratory distress Cardiovascular Exam: regular rate/rhythm, normal heart sounds, normal peripheral pulses, capillary refill <2 sec, No murmur Gastrointestinal/Abdomen Exam: soft, normal bowel sounds, No tenderness Back Exam: other (Small, sessile edematous area R posterior thorax/No erythema/No exudate/NTTP) Extremity Exam: normal inspection, normal range of motion SpO2: 100 - Course Nursing assessment & vital signs reviewed: Yes - Radiology Ultrasound Exam Other Ultrasound: discussed w/radiologist (SQ lipoma) Ordered Tests: Active Orders 24 hr Category Date Time Status CHEST ULTRASOUND [US] Stat Exams 04/17/23 13:32 Completed - Progress Progress Note: 04/17/23 15:10 Nursing note and vital signs reviewed No food or housing insecurities noted US results reviewed and shared w pt Pt referred to PCP for conservative treatment vs surgical management Counseled pt/family regarding: diagnosis, need for follow-up, rad results Medical Desision Making - Diagnostic Testing Radiological Interpretation: Reviewed by me - Risk of complications Low Risk: Low risk of morbidity from additional dx testing or treatment - Departure Departure Disposition: Home Clinical Impression: Lipoma Condition: Stable Critical Care Time: No Referrals: CLAUDETTE PECK [Primary Care Provider] - Follow up/PCP as directed Instructions: Lipoma Additional Instructions: Follow up with your family MD or surgeon Return to ER as needed
[2023-04-17 14:19] VITALS: BP 123/76; PULSE 72
--- NOTE | 2023-04-17 14:38 | XRAY ---
Indication: Right posterior thorax pain. Targeted soft tissue ultrasound right mid back demonstrates 2.4 x 0.4 x 3.1 cm well-circumscribed subcutaneous lipoma. No other focal solid/cystic mass or abnormal fluid collection.
== END 2023-04-17 15:00 | disposition home or self-care (01) ==
LOC: ED 12:59
DX: D17.1 Benign lipomatous neoplasm of skin and subcutaneous tissue of trunk (principal); I10 Essential (primary) hypertension; Z79.899 Other long term (current) drug therapy; Z72.0 Tobacco use
CPT/HCPCS: 76604; 99282

== ENCOUNTER 2023-08-04 15:48 | Emergency (ER) | payer OTHER ==
[2023-08-04 16:01] VITALS: TEMP 97.7
--- NOTE | 2023-08-04 16:03 | ERPHSYRPT ---
- History of Present Illness Time Seen by Provider: 08/04/23 16:00 Historian: patient Exam Limitations: no limitations Physician History: Patient is a 43-year-old white male who has a history of diverticulosis that is recently progressed to diverticulitis who presents to the ER with a complaint of blood after a bowel movement on the tissue. He specifically states its not in the stool or on the stool but only on the tissue. Currently under treatment for diverticulitis. Timing/Duration: day(s) (2) Activities at Onset: none Severity of Pain-Max: mild Severity of Pain-Current: none Modifying Factors: Improves With: defecating (Blood noted on the tissue) Associated Symptoms: denies symptoms Previous symptoms: no prior history Allergies/Adverse Reactions: paroxetine [From Paxil] Adverse Reaction (Verified 07/22/23 10:37) Home Medications: Hydroxyzine HCl 25 mg [Atarax 25 mg] 1 tab PO HS 07/25/22 [History] Benazepril HCl 20 mg PO DAILY 03/12/23 [History] Clonidine HCl 0.1 mg [Clonidine 0.1 mg Tablet] 0.1 mg PO TID 03/12/23 [History] Meclizine HCl 25 mg [Antivert 25 mg] 1 tab PO TID PRN 03/26/23 [History] Ondansetron ODT 4 MG [Zofran Odt 4 mg] 1 tab PO Q4-6HPRN PRN 07/17/23 [History] Hx Tetanus, Diphtheria Vaccination/Date Given: Yes Hx Influenza Vaccination/Date Given: No Hx Pneumococcal Vaccination/Date Given: No Travel Risk - Vaccine Status Have you recieved a Covid-19 vaccination: Yes 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 - Review of Systems Constitutional: No Fever, No Chills Eyes: No Symptoms Ears, Nose, & Throat: No Symptoms Respiratory: No Cough, No Dyspnea Cardiac: No Chest Pain, No Edema, No Syncope Abdominal/Gastrointestinal: Other (Blood on the tissue after bowel movement), No Abdominal Pain, No Nausea, No Vomiting, No Diarrhea Genitourinary Symptoms: No Dysuria Musculoskeletal: No Back Pain, No Neck Pain Skin: No Rash Neurological: No Dizziness, No Focal Weakness, No Sensory Changes Psychological: No Symptoms Endocrine: No Symptoms All Other Systems: Reviewed and Negative - Past Medical History Pertinent Past Medical History: Yes Neurological History: No Pertinent History ENT History: No Pertinent History Cardiac History: Hypertension Respiratory History: No Pertinent History Endocrine Medical History: No Pertinent History Musculoskeletal History: No Pertinent History GI Medical History: No Pertinent History History: No Pertinent History Psycho-Social History: Anxiety, Depression Male Reproductive Disorders: No Pertinent History Other Medical History: MRSA - Past Surgical History Past Surgical History: No - Social History Smoking Status: Current every day smoker How long have you smoked: 25 yrs Exposure to second hand smoke: No Drug Use: none Patient Lives Alone: No - Nursing Vital Signs Nursing Vital Signs: Initial Vital Signs Temperature 97.7 F 08/04/23 15:55 Pulse Rate 68 08/04/23 15:55 Respiratory Rate 16 08/04/23 15:55 Blood Pressure 159/74 08/04/23 15:55 O2 Sat by Pulse Oximetry 100 08/04/23 15:55 Pain Scale Pain Intensity 0 - Physical Exam General Appearance: no apparent distress, alert Eye Exam: PERRL/EOMI, eyes nml inspection Ears, Nose, Throat Exam: normal ENT inspection, pharynx normal, moist mucous membranes Neck Exam: normal inspection, non-tender, supple, full range of motion Respiratory Exam: normal breath sounds, lungs clear, No respiratory distress Cardiovascular Exam: regular rate/rhythm, normal heart sounds Gastrointestinal/Abdomen Exam: soft, No tenderness, No mass Rectal Exam: hemorrhoids (Small amount of blood noted) Back Exam: normal inspection, normal range of motion, No CVA tenderness, No vertebral tenderness Extremity Exam: normal inspection, normal range of motion, pelvis stable Neurologic Exam: alert, 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, cooperative, normal mood/affect, nml cerebellar function, sensation nml, No motor deficits Skin Exam: normal color, warm, dry - Course Nursing assessment & vital signs reviewed: Yes Ordered Tests: Active Orders 24 hr Category Date Time Status CBC W DIFF Stat Lab 08/04/23 16:08 Completed CMP Stat Lab 08/04/23 16:08 Completed OB-FECAL SCREEN Stat Lab 08/04/23 Ordered Lab/Rad Data: Laboratory Result Diagrams 08/04/23 16:08 08/04/23 16:08 Laboratory Results 08/04/23 08/04/23 Range/Units 16:08 16:08 WBC 11.9 H (4.0-10.5) x10^3/uL RBC 4.70 (4.1-5.6) x10^6/uL Hgb 14.2 (12.5-18.0) g/dL Hct 43.9 (42-50) % MCV 93.4 (78-100) fL MCH 30.2 (26-32) pg MCHC 32.3 (32-36) g/dL RDW 13.1 (11.5-14.0) % Plt Count 331 (150-450) x10^3/uL MPV 10.0 (7.5-11.0) fL Gran % 56.9 (36.0-66.0) % Immature Gran % (Auto) 0.3 (0.00-0.4) % Nucleat RBC Rel Count 0.0 (0.00-0.1) % Eos # (Auto) 0.17 (0-0.5) x10^3/uL Immature Gran # (Auto) 0.03 (0.00-0.03) x10^3u/L Absolute Lymphs (auto) 4.11 (1.0-4.6) x10^3/uL Absolute Monos (auto) 0.72 (0.0-1.3) x10^3/uL Absolute Nucleated RBC 0.00 (0.00-0.01) x10^3u/L Lymphocytes % 34.7 (24.0-44.0) % Monocytes % 6.1 (0.0-12.0) % Eosinophils % 1.4 (0.00-5.0) % Basophils % 0.6 (0.0-0.4) % Absolute Granulocytes 6.76 (1.4-6.9) x10^3/uL Basophils # 0.07 (0-0.4) x10^3/uL Sodium 136 L (137-145) mmol/L Potassium 4.2 (3.5-5.1) mmol/L Chloride 105 (98-107) mmol/L Carbon Dioxide 23 (22-30) mmol/L Anion Gap 12.3 (5-15) MEQ/L BUN 13 (9-20) mg/dL Creatinine 0.91 (0.66-1.25) mg/dL Estimated GFR > 60.0 ML/MIN Glucose 100 (74-106) mg/dL Calcium 9.5 (8.4-10.2) mg/dL Total Bilirubin 0.40 (0.2-1.3) mg/dL AST 24 (17-59) U/L ALT 18 (0-50) U/L Alkaline Phosphatase 71 (38-126) U/L Serum Total Protein 7.9 (6.3-8.2) g/dL Albumin 4.8 (3.5-5.0) g/dL - Progress Progress: unchanged Medical Desision Making - Diagnostic Testing Diagnostic test were ordered, analyzed, and reviewed by me: Yes - Risk of complications Minimal Risk: Minimal risk of morbidity - Departure Departure Disposition: Home Clinical Impression: Bleeding hemorrhoid Condition: Stable Critical Care Time: No Referrals: CLAUDETTE LOPEZ [Primary Care Provider] - Follow up/PCP as directed Instructions: Hemorrhoids ED Prescriptions: Hydrocortisone 2.5% 30 gm [Anusol-Hc 2.5% Cream 30 gm] 30 gm TP TID #7
[2023-08-04 16:08] LABS: Absolute Neutrophil Ct (ANC) 6.76 x10^3/uL (1.4-6.9); BASOPHIL % 0.6 % (0.0-0.4); Basophil (Absolute #) 0.07 x10^3/uL (0-0.4); Eosinophil % 1.4 % (0.00-5.0); Eosinophil (Absolute #) 0.17 x10^3/uL (0-0.5); Hematocrit 43.9 % (42-50); Hemoglobin 14.2 g/dL (12.5-18.0); IMMATURE GRAN # 0.03 x10^3u/L (0.00-0.03); IMMATURE GRAN % 0.3 % (0.00-0.4); Lymphocyte (Absolute #) 4.11 x10^3/uL (1.0-4.6); Lymphocytes % 34.7 % (24.0-44.0); Mean Cell Volume 93.4 fL (78-100); Mean Corpuscular Hemoglobin 30.2 pg (26-32); Mean Corpuscular Hgb Concent. 32.3 g/dL (32-36); Monocyte (Absolute #) 0.72 x10^3/uL (0.0-1.3); Monocytes % 6.1 % (0.0-12.0); Neutrophil % 56.9 % (36.0-66.0); Platelet Count 331 x10^3/uL (150-450); Red Cell Distribution Width 13.1 % (11.5-14.0); White Blood Count 11.9 x10^3/uL (4.0-10.5)
[2023-08-04 16:22] LABS: ALBUMIN 4.8 g/dL (3.5-5.0); ALKALINE PHOSPHATASE 71 U/L (38-126); ANION GAP 12.3 MEQ/L (5-15); BLOOD UREA NITROGEN 13 mg/dL (9-20); CHLORIDE 105 mmol/L (98-107); Calcium 9.5 mg/dL (8.4-10.2); Carbon Dioxide 23 mmol/L (22-30); Creatinine 1 0.91 mg/dL (0.66-1.25); EST GLOMERULAR FILTRATION RATE > 60.0 ML/MIN; Glucose 100 mg/dL (74-106); Potassium 4.2 mmol/L (3.5-5.1); SGOT/AST 24 U/L (17-59); SGPT/ALT 18 U/L (0-50); SODIUM 136 mmol/L (137-145); Total Protein 7.9 g/dL (6.3-8.2)
[2023-08-04 17:04] VITALS: BP 138/86; PULSE 73; RESP 18; O2SAT 98
== END 2023-08-04 16:56 | disposition home or self-care (01) ==
LOC: ED 15:48
DX: K64.9 Unspecified hemorrhoids (principal); I10 Essential (primary) hypertension; Z79.899 Other long term (current) drug therapy; Z72.0 Tobacco use
CPT/HCPCS: 36415; 80053; 85025; 99282

== ENCOUNTER 2023-08-11 13:32 | Emergency (ER) | payer OTHER ==
[2023-08-11 14:05] VITALS: RESP 17; TEMP 98.2; O2SAT 99
[2023-08-11 15:06] LABS: Appearance Clear (Clear); Bacteria None Seen /HPF (None Seen); Bilirubin Negative (Negative); Blood Negative (Negative); Epithelial Cells None Seen /HPF (None Seen); Glucose, Urine Negative (Negative); Hyaline Casts NONE SEEN /LPF (0-2); Ketones Negative (Negative); Leukocyte Esterase Negative (Negative); Nitrite Negative (Negative); Protein,Urine Dip Negative (Negative); RBC 0-2 /HPF (0-5); Specific Gravity <=1.005 (1.005-1.030); Urobilinogen 0.2 mg/dL (0.2); WBC 0-2 /HPF (0-5)
[2023-08-11 15:07] LABS: ADD URINE CULTURE? NO (NO)
[2023-08-11 15:38] LABS: Absolute Neutrophil Ct (ANC) 7.03 x10^3/uL (1.4-6.9); BASOPHIL % 0.5 % (0.0-0.4); Basophil (Absolute #) 0.06 x10^3/uL (0-0.4); Eosinophil % 0.7 % (0.00-5.0); Eosinophil (Absolute #) 0.08 x10^3/uL (0-0.5); Hematocrit 41.9 % (42-50); Hemoglobin 13.9 g/dL (12.5-18.0); IMMATURE GRAN # 0.03 x10^3u/L (0.00-0.03); IMMATURE GRAN % 0.3 % (0.00-0.4); Lymphocyte (Absolute #) 3.23 x10^3/uL (1.0-4.6); Mean Cell Volume 90.5 fL (78-100); Mean Corpuscular Hgb Concent. 33.2 g/dL (32-36); Mean Platelet Volume 10.1 fL (7.5-11.0); Monocyte (Absolute #) 0.72 x10^3/uL (0.0-1.3); Monocytes % 6.5 % (0.0-12.0); Platelet Count 337 x10^3/uL (150-450); Red Blood Count 4.63 x10^6/uL (4.1-5.6); Red Cell Distribution Width 13.2 % (11.5-14.0); White Blood Count 11.2 x10^3/uL (4.0-10.5)
[2023-08-11 15:54] LABS: ALBUMIN 4.8 g/dL (3.5-5.0); ALKALINE PHOSPHATASE 70 U/L (38-126); AMYLASE 68 U/L (30-110); ANION GAP 15.3 MEQ/L (5-15); BLOOD UREA NITROGEN 14 mg/dL (9-20); CHLORIDE 106 mmol/L (98-107); Carbon Dioxide 22 mmol/L (22-30); Creatinine 1 0.94 mg/dL (0.66-1.25); EST GLOMERULAR FILTRATION RATE > 60.0 ML/MIN; Glucose 95 mg/dL (74-106); LIPASE 185 U/L (23-300); Potassium 4.3 mmol/L (3.5-5.1); SGOT/AST 29 U/L (17-59); SGPT/ALT 19 U/L (0-50); SODIUM 139 mmol/L (137-145); Total Protein 7.7 g/dL (6.3-8.2)
[2023-08-11 16:52] VITALS: BP 150/90; PULSE 70
--- NOTE | 2023-08-11 17:48 | ERPHSYRPT ---
- History of Present Illness Time Seen by Provider: 08/11/23 14:45 Historian: patient Exam Limitations: no limitations Patient Subjective Stated Complaint: Patient c/o abdominal pain. States entire abdomen hurts but majority of pain is on the left side. Denies nausea. States, "I can't fart." Pain is constant but changes in severity. Triage Nursing Assessment: Patient ambulated back to ER. He is alert and oriented; anxious. No SOB. Patient ROSA WNL. Abdomen is soft, flat. No skin alterations noted. Bowel sounds present. Physician History: The patient presents with a history of diverticulitis and ongoing stomach issu es. They report that their condition improved after an initial course of antibiotics, but their primary care physician prescribed an additional three days of antibiotics as a precaution several years ago. The patient denies experiencing nausea or vomiting and states that they can eat without issue, including consuming a steak. They report that they do not consistently experience abdominal pain after eating, and the pain is not specifically associated with food consumption. The patient describes their abdominal pain as being located in the central region of their abdomen, which sometimes wraps around their body. They note that the pain is less severe when standing up compared to sitting down. The patient reports difficulty with bowel movements, stating that they cannot pass stool or gas properly. They have not had a complete bowel movement in several days, although they have been able to pass some stool. The patient denies observing any blood in their stool. In summary, the patient presents with a history of diverticulitis and ongoing abdominal pain, difficulty with bowel movements, and an inability to pass gas properly. The pain is located in the central region of the abdomen and can wrap around the body, with varying severity depending on the patient's position. The patient denies any association between their pain and food consumption or the presence of blood in their stool. Timing/Duration: day(s) (3) Activities at Onset: rest Quality: sharpness Abdominal Pain Onset Location: LLQ Pain Radiation: flank Severity of Pain-Max: moderate Severity of Pain-Current: mild Modifying Factors: Worsens With: movement, palpation Associated Symptoms: denies symptoms Previous symptoms: same symptoms as today Allergies/Adverse Reactions: paroxetine [From Paxil] Adverse Reaction (Verified 08/11/23 13:45) Home Medications: Hydroxyzine HCl 25 mg [Atarax 25 mg] 1 tab PO HS 07/25/22 [History] Benazepril HCl 20 mg PO DAILY 03/12/23 [History] Clonidine HCl 0.1 mg [Clonidine 0.1 mg Tablet] 0.1 mg PO TID 03/12/23 [History] Meclizine HCl 25 mg [Antivert 25 mg] 1 tab PO TID PRN 03/26/23 [History] Hx Tetanus, Diphtheria Vaccination/Date Given: Yes Hx Influenza Vaccination/Date Given: No Hx Pneumococcal Vaccination/Date Given: No Immunizations Up to Date: Yes Travel Risk - International Travel Have you traveled outside of the country in past 3 weeks: No - Coronavirus Screening Are you exhibiting any of the following symptoms?: No Close contact with a COVID-19 positive Pt in past 14-21 Days: No - Vaccine Status Have you recieved a Covid-19 vaccination: Yes 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 - Review of Systems All Other Systems: Reviewed and Negative (As per HPI) - Past Medical History Pertinent Past Medical History: Yes Neurological History: No Pertinent History ENT History: No Pertinent History Cardiac History: Hypertension Respiratory History: No Pertinent History Endocrine Medical History: No Pertinent History Musculoskeletal History: No Pertinent History GI Medical History: No Pertinent History History: No Pertinent History Psycho-Social History: Anxiety, Depression Male Reproductive Disorders: No Pertinent History Other Medical History: MRSA, Hemorrhoids - Past Surgical History Past Surgical History: No - Social History Smoking Status: Current every day smoker How long have you smoked: 25 yrs Exposure to second hand smoke: No Drug Use: none Patient Lives Alone: No - Nursing Vital Signs Nursing Vital Signs: Initial Vital Signs Temperature 98.2 F 08/11/23 13:50 Pulse Rate 74 08/11/23 13:50 Respiratory Rate 17 08/11/23 13:50 Blood Pressure 154/94 08/11/23 13:50 O2 Sat by Pulse Oximetry 99 08/11/23 13:50 Pain Scale Pain Intensity 0 - Physical Exam SpO2: 99 Comments: General: No acute distress. Awake and conversant. Eyes: Normal conjunctiva, anicteric. Round symmetric pupils. ENT: Hearing grossly intact. No nasal discharge. Neck: Neck is supple. No masses or thyromegaly. Respiratory: Respirations are non-labored. No wheezing. Abdomen: Soft, non-distended, LLQ TTP, no rebound no guarding Skin: Warm. No rashes or ulcers. Psych: Alert and oriented. Cooperative, Appropriate mood and affect, Normal judgment. CV: No lower extremity edema. - CT Exams Abdomen/Pelvis CT Interpretation: Tele-radiologist Report, diverticulitis Lab/Rad Data: Laboratory Result Diagrams 08/11/23 15:35 08/11/23 15:35 Laboratory Results 08/11/23 08/11/23 08/11/23 Range/Units 15:35 15:35 14:57 WBC 11.2 H (4.0-10.5) x10^3/uL RBC 4.63 (4.1-5.6) x10^6/uL Hgb 13.9 (12.5-18.0) g/dL Hct 41.9 L (42-50) % MCV 90.5 (78-100) fL MCH 30.0 (26-32) pg MCHC 33.2 (32-36) g/dL RDW 13.2 (11.5-14.0) % Plt Count 337 (150-450) x10^3/uL MPV 10.1 (7.5-11.0) fL Gran % 63.0 (36.0-66.0) % Immature Gran % (Auto) 0.3 (0.00-0.4) % Nucleat RBC Rel Count 0.0 (0.00-0.1) % Eos # (Auto) 0.08 (0-0.5) x10^3/uL Immature Gran # (Auto) 0.03 (0.00-0.03) x10^3u/L Absolute Lymphs (auto) 3.23 (1.0-4.6) x10^3/uL Absolute Monos (auto) 0.72 (0.0-1.3) x10^3/uL Absolute Nucleated RBC 0.00 (0.00-0.01) x10^3u/L Lymphocytes % 29.0 (24.0-44.0) % Monocytes % 6.5 (0.0-12.0) % Eosinophils % 0.7 (0.00-5.0) % Basophils % 0.5 (0.0-0.4) % Absolute Granulocytes 7.03 H (1.4-6.9) x10^3/uL Basophils # 0.06 (0-0.4) x10^3/uL Sodium 139 (137-145) mmol/L Potassium 4.3 (3.5-5.1) mmol/L Chloride 106 (98-107) mmol/L Carbon Dioxide 22 (22-30) mmol/L Anion Gap 15.3 H (5-15) MEQ/L BUN 14 (9-20) mg/dL Creatinine 0.94 (0.66-1.25) mg/dL Estimated GFR > 60.0 ML/MIN Glucose 95 (74-106) mg/dL Calcium 10.0 (8.4-10.2) mg/dL Total Bilirubin 0.50 (0.2-1.3) mg/dL AST 29 (17-59) U/L ALT 19 (0-50) U/L Alkaline Phosphatase 70 (38-126) U/L Serum Total Protein 7.7 (6.3-8.2) g/dL Albumin 4.8 (3.5-5.0) g/dL Amylase 68 (30-110) U/L Lipase 185 (23-300) U/L Urine Color Yellow (Yellow) Urine Appearance Clear (Clear) Urine pH 7.0 (4.6-8.0) Ur Specific [place] <=1.005 (1.005-1.030) Urine Protein Negative (Negative) Urine Glucose (UA) Negative (Negative) mg/dL Urine Ketones Negative (Negative) Urine Blood Negative (Negative) Urine Nitrite Negative (Negative) Urine Bilirubin Negative (Negative) Urine Urobilinogen 0.2 (0.2) mg/dL Ur Leukocyte Esterase Negative (Negative) U Hyaline Cast (Auto) NONE SEEN (0-2) /LPF Urine Microscopic RBC 0-2 (0-5) /HPF Urine Microscopic WBC 0-2 (0-5) /HPF Ur Epithelial Cells None Seen (None Seen) /HPF Urine Bacteria None Seen (None Seen) /HPF Urine Culture Reflexed NO (NO) - Progress Progress: improved Progress Note: -VS unremarkable -Overall well appearing. No abnormal cardiopulmonary findings. Moderate abdominal ttp. No guarding. Surgical process seems unlikely given the exam and presentation. History and exam doesnt suggest AAA so no indication for CTA. Could be a benign cause of pain although dangerous pathology needs to be ruled out first -CT abd/pelv -Abdominal pain labs, analgesics CT with secondary signs of diverticulitis and no other acute pathology. Labs reassuring. Patient resting comfortably. Patient states they feel much better and would like to go home. Prescribed Levofloxacin and Flagyl. Return precaut ions were extensively discussed and they will see their primary within the next 48hours or to return to the ER for a re-exam. The patient understands to return for any worsening symptoms or failure to improve, especially over the next 12-24 hours. Encouraged patient to use Miralax to help with his constipation concerns. Medical Desision Making - Diagnostic Testing Diagnostic test were ordered, analyzed, and reviewed by me: Yes Radiological Interpretation: Reviewed by me, Teleradiologist Report - Risk of complications The pt has a mod risk of morbidity or mortality based on: Need for prescription drug management - Departure Departure Disposition: Home Clinical Impression: Constipation, Diverticulitis Condition: Good Critical Care Time: No Referrals: CLAUDETTE LOPEZ [Primary Care Provider] - Follow up/PCP as directed Instructions: Constipation in adults Prescriptions: Metronidazole 500 mg [Flagyl 500 MG] 500 mg PO TID #21 tablet levoFLOXacin [Levofloxacin] 750 mg PO DAILY #7 tablet Polyethylene Glycol 3350 17 gm [Miralax Powder 17GM PACKET] 17 gm PO DAILY 30 Days #30 packet
--- NOTE | 2023-08-11 18:17 | XRAY ---
CLINICAL HISTORY:pain COMPARISON:07/17/2023. TECHNIQUE:A CT scan of the abdomen and pelvis was performed without IV contrast. Coronal and sagittal reconstructive images were also obtained. FINDINGS: Lung bases: There is redemonstration of the mild centrilobular emphysematous changes in both lower lung lobes. There is no significant change in the nodules in the anterior basal segment of the right lower lobe, still measuring up to 5.0 mm. Abdomen: There is redemonstration of the descending and sigmoid colon diverticulosis. There is limited comparative evaluation of the wall of the sigmoid colon with the prior study due to the absence of contrast. However, subtle wall thickening of the sigmoid colon, as well as the descending colon is noted. The rest of the visualized small and large bowel loops are unremarkable. The appendix is normal. The liver is normal in size measuring 13.5 cm craniocaudally. No diffuse or focal parenchymal abnormality. The portal vein, intrahepatic biliary radicals, and the bile ducts are normal. The spleen, pancreas, and adrenal glands are unremarkable. The kidneys are normal in size and shape. A 2.0 mm calculus is again seen in the superior calyx of the left kidney. No cysts, mass, or hydronephrosis. The gallbladder is distended and shows no definite stones. There is no evidence of wall thickening/ pericholecystic collection. There is no evidence of significant enlargement of the mesenteric or retroperitoneal lymph nodes. Pelvis: The urinary bladder is unremarkable. The prostate gland is normal. The pelvic vasculature is unremarkable. No evidence of pelvic lymphadenopathy. IMPRESSION: 1. Descending and sigmoid colon diverticulosis, with apparent wall thickening of the sigmoid and descending colon. probably secondary to hypodistention, or could be inflammatory/infectious in origin. A contrast-enhanced study is suggested if clinically warranted. 2. Stable 2mm non-obstructing left upper pole renal calculus. 3. Stable nodules in the right lower lung lobe. A dedicated study of the chest is suggested for further evaluation. Electronically Signed by: Anai Lorenzana MD. (08/11/2023 17:16:05 TAG WRITER)
== END 2023-08-11 17:54 | disposition home or self-care (01) ==
LOC: ED 13:32
DX: K59.00 Constipation, unspecified (principal); K57.92 Diverticulitis of intestine, part unspecified, without perforation or abscess without bleeding; R10.9 Unspecified abdominal pain; I10 Essential (primary) hypertension; Z79.899 Other long term (current) drug therapy; Z72.0 Tobacco use
CPT/HCPCS: 36415; 74176; 80053; 81001; 82150; 83690; 85025; 99283

== ENCOUNTER 2023-10-19 16:39 | Emergency (ER) | payer OTHER ==
[2023-10-19 17:03] VITALS: RESP 18; TEMP 97.3; O2SAT 100
--- NOTE | 2023-10-19 17:21 | ERPHSYRPT ---
- History of Present Illness Time Seen by Provider: 10/19/23 17:18 Historian: patient Exam Limitations: no limitations Patient Subjective Stated Complaint: Abdominal pain Triage Nursing Assessment: Patient ambulated back to ED and transferred self to bed. Patient A+O X3. Patient's skin pink, warm and dry. Patient complains of bright red blood x 2 this afternoon. Patient complains of lower abdominal pain 4/10 and nausea. Patient denies vomiting. Abdomen soft and round with BS x 4. Physician History: Patient complains of bright red blood x 2 this afternoon. Patient complains of lower abdominal pain 4/10 and nausea. Patient denies vomiting. Patient is 43-year-old male with significant past medical history of hyper tension started having a lower abdominal pain associated with some bright red blood in his stool. He denies any fever chills nausea or vomiting. Patient states that he had a same type of symptoms few years ago when he had a diverticulitis so he got concerned and came to the emergency room. In the emergency room he was not having any abdominal pain. Timing/Duration: today Abdominal Pain Onset Location: generalized abdomen Pain Radiation: no radiation Severity of Pain-Max: mild Severity of Pain-Current: none Modifying Factors: Improves With: nothing Associated Symptoms: denies symptoms Previous symptoms: same symptoms as today Allergies/Adverse Reactions: paroxetine [From Paxil] Adverse Reaction (Verified 10/19/23 16:55) Home Medications: Hydroxyzine HCl 25 mg [Atarax 25 mg] 1 tab PO HS 07/25/22 [History] Benazepril HCl 20 mg PO DAILY 03/12/23 [History] Clonidine HCl 0.1 mg [Clonidine 0.1 mg Tablet] 0.1 mg PO TID 03/12/23 [History] Meclizine HCl 25 mg [Antivert 25 mg] 1 tab PO TID PRN 03/26/23 [History] Hx Tetanus, Diphtheria Vaccination/Date Given: Yes Hx Influenza Vaccination/Date Given: No Hx Pneumococcal Vaccination/Date Given: No Immunizations Up to Date: Yes Travel Risk - International Travel Have you traveled outside of the country in past 3 weeks: No - Coronavirus Screening Are you exhibiting any of the following symptoms?: No Close contact with a COVID-19 positive Pt in past 14-21 Days: No - Vaccine Status Have you recieved a Covid-19 vaccination: Yes 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 - Review of Systems Constitutional: No Fever, No Chills Eyes: No Symptoms Ears, Nose, & Throat: No Symptoms Respiratory: No Cough, No Dyspnea Cardiac: No Chest Pain, No Edema, No Syncope Abdominal/Gastrointestinal: Abdominal Pain, Hematochezia, No Nausea, No Vomiting, No Diarrhea Genitourinary Symptoms: No Dysuria Musculoskeletal: No Symptoms, No Back Pain, No Neck Pain Skin: No Rash Neurological: No Dizziness, No Focal Weakness, No Sensory Changes Psychological: No Symptoms Endocrine: No Symptoms All Other Systems: Reviewed and Negative - Past Medical History Pertinent Past Medical History: Yes Neurological History: No Pertinent History ENT History: No Pertinent History Cardiac History: Hypertension Respiratory History: No Pertinent History Endocrine Medical History: No Pertinent History Musculoskeletal History: No Pertinent History GI Medical History: No Pertinent History History: No Pertinent History Psycho-Social History: Anxiety, Depression Male Reproductive Disorders: No Pertinent History Other Medical History: MRSA, Hemorrhoids - Past Surgical History Past Surgical History: No - Social History Smoking Status: Current every day smoker How long have you smoked: 25 yrs Exposure to second hand smoke: No Drug Use: none Patient Lives Alone: No - Nursing Vital Signs Nursing Vital Signs: Initial Vital Signs Temperature 97.3 F 10/19/23 16:56 Pulse Rate 68 10/19/23 16:56 Respiratory Rate 18 10/19/23 16:56 Blood Pressure 145/92 10/19/23 16:56 O2 Sat by Pulse Oximetry 100 10/19/23 16:56 Pain Scale Pain Intensity 4 - Physical Exam General Appearance: no apparent distress, alert Eye Exam: PERRL/EOMI, eyes nml inspection Ears, Nose, Throat Exam: normal ENT inspection, pharynx normal, moist mucous membranes Neck Exam: normal inspection, non-tender, supple, full range of motion Respiratory Exam: normal breath sounds, lungs clear, No respiratory distress Cardiovascular Exam: regular rate/rhythm, normal heart sounds Gastrointestinal/Abdomen Exam: soft, No tenderness, No mass Back Exam: normal inspection, normal range of motion, No CVA tenderness, No vertebral tenderness Extremity Exam: normal inspection, normal range of motion, pelvis stable Neurologic Exam: alert, 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, cooperative, normal mood/affect, nml cerebellar function, sensation nml, No motor deficits Skin Exam: normal color, warm, dry SpO2: 100 - Course Nursing assessment & vital signs reviewed: Yes - Radiology Exams Abdomen X-ray Interpretation: Reviewed by me Ordered Tests: Active Orders 24 hr Category Date Time Status KUB Stat Exams 10/19/23 17:09 Taken CBC W DIFF Stat Lab 10/19/23 17:30 Completed CMP Stat Lab 10/19/23 17:30 Completed Lab/Rad Data: Laboratory Result Diagrams 10/19/23 17:30 10/19/23 17:30 Laboratory Results 10/19/23 10/19/23 Range/Units 17:30 17:30 WBC 12.3 H (4.0-10.5) x10^3/uL RBC 4.42 (4.1-5.6) x10^6/uL Hgb 13.4 (12.5-18.0) g/dL Hct 40.7 L (42-50) % MCV 92.1 (78-100) fL MCH 30.3 (26-32) pg MCHC 32.9 (32-36) g/dL RDW 13.2 (11.5-14.0) % Plt Count 345 (150-450) x10^3/uL MPV 10.2 (7.5-11.0) fL Gran % 59.7 (36.0-66.0) % Immature Gran % (Auto) 0.4 (0.00-0.4) % Nucleat RBC Rel Count 0.0 (0.00-0.1) % Eos # (Auto) 0.22 (0-0.5) x10^3/uL Immature Gran # (Auto) 0.05 H (0.00-0.03) x10^3u/L Absolute Lymphs (auto) 3.75 (1.0-4.6) x10^3/uL Absolute Monos (auto) 0.87 (0.0-1.3) x10^3/uL Absolute Nucleated RBC 0.00 (0.00-0.01) x10^3u/L Lymphocytes % 30.4 (24.0-44.0) % Monocytes % 7.1 (0.0-12.0) % Eosinophils % 1.8 (0.00-5.0) % Basophils % 0.6 (0.0-0.4) % Absolute Granulocytes 7.35 H (1.4-6.9) x10^3/uL Basophils # 0.08 (0-0.4) x10^3/uL Sodium 133 L (137-145) mmol/L Potassium 4.0 (3.5-5.1) mmol/L Chloride 103 (98-107) mmol/L Carbon Dioxide 23 (22-30) mmol/L Anion Gap 10.7 (5-15) MEQ/L BUN 17 (9-20) mg/dL Creatinine 1.01 (0.66-1.25) mg/dL Estimated GFR 95.8 ML/MIN Glucose 75 (74-106) mg/dL Calcium 9.4 (8.4-10.2) mg/dL Total Bilirubin 0.50 (0.2-1.3) mg/dL AST 22 (17-59) U/L ALT 19 (0-50) U/L Alkaline Phosphatase 68 (38-126) U/L Serum Total Protein 7.8 (6.3-8.2) g/dL Albumin 4.5 (3.5-5.0) g/dL - Progress Progress: improved, pain not gone completely Counseled pt/family regarding: lab results, diagnosis, need for follow-up, rad results Medical Desision Making - Diagnostic Testing Diagnostic test were ordered, analyzed, and reviewed by me: Yes Radiological Interpretation: Reviewed by me - Risk of complications Low Risk: Low risk of morbidity from additional dx testing or treatment - Departure Departure Disposition: Home Clinical Impression: Diverticulitis, Bleeding hemorrhoid Condition: Stable Critical Care Time: No Referrals: CLAUDETTE LOPEZ [Primary Care Provider] - Follow up/PCP as directed Instructions: Diverticulitis (DC), Hemorrhoids (DC), Gastrointestinal Bleeding (DC) Additional Instructions: Discharge/Care Plan ALESIADALYMATTIMARLI GREGG was seen on 10/19/23 in the Emergency Room. The patient was counseled regarding Diagnosis,Lab results, Imaging studies, need for follow up and when to return to the Emergency Room. Prescriptions given: Discharge Note I have spoken with the patient and/or caregivers. I have explained the patient's condition, diagnosis and treatment plan based on the information available to me at this time. I have answered the patient's and/or caregiver's questions and addressed any concerns. The patient and/or caregivers have as good understanding of the patient's diagnosis, condition and treatment plan as can be expected at this point. The vital signs have been stable. The patient's condition is stable and appropriate for discharge from the emergency department. The patient will pursue further outpatient evaluation with the primary care physician or other designated or consulting physician as outlined in the discharge instructions. The patient and/or caregivers are agreeable to this plan of care and follow-up instructions have been explained in detail. The patient and/or caregivers have received these instruction. The patient/and or caregivers are aware that any significant change in condition or worsening of symptoms should prompt an immediate return to this or the closest emergency department or call 911. ALESIAMATTIMARLI GREGG was seen on 10/19/23 n the Emergency Room. At that time you were treated for an emergent condition, during your visit Laboratory, Radiology and/or other procedures may have been ordered. It is very important that you fo llow-up with your Primary Care Physician CLAUDETTE LOPEZ within the next 24-48 hours to review your Emergency Room visit and the final results of testing that was ordered. Some test results such as Urine Cultures, Blood Cultures, and other cultures if ordered will not be finalized for 24-48 hours. If you do not have a Primary Care Provider please call the medical records department at [phone] ext [phone] to obtain a copy of your results or you may sign into our patient portal to obtain these results by visiting us @ [email or web address] and completing the following steps: 1. Click on the Patient Portal link 2. Click the Patient Self Enrollment Link to complete the enrollment form and entering your 3. Once the enrollment form is completed you will receive an email with a temporary ID and password at the email address you provided. 4. Next choose a user name and password. Your user name must be at least 4 monica acters long and your password must be at least 4 characters long. 5. Choose a security question from the list and provide your answer to the question. If you already have signed into the Health Portal you may access your Health Care Information 13/05 by the following steps: 1. Login to our website @ [email or web address] 2. Enter your original user name and password. FAQS The [facility] Portal is an online tool that contains your Lab Results, Radiology Reports, Visit History, Discharge Instructions and Health Summary Lab and Radiology Results will not be available for 72 hours on the portal. The Portal is a secure site, passwords are encryted and URLs are re-written so they cannot be copied and pasted. You and authorized family members are the only ones who can access your Portal. Also there is a timeout feature that protects your information if you leave the Portal page open. If you have technical difficulty please use the Contact Us link on the page this will allow you to submit any questions you have regarding the Portal or you may contact the Medical Record Department at [phone] ext [phone]. Prescriptions: Levofloxacin [Levaquin 500 MG Tablet] 500 mg PO QAM #5 tablet
[2023-10-19 17:46] LABS: Absolute Neutrophil Ct (ANC) 7.35 x10^3/uL (1.4-6.9); BASOPHIL % 0.6 % (0.0-0.4); Basophil (Absolute #) 0.08 x10^3/uL (0-0.4); Eosinophil % 1.8 % (0.00-5.0); Eosinophil (Absolute #) 0.22 x10^3/uL (0-0.5); Hematocrit 40.7 % (42-50); Hemoglobin 13.4 g/dL (12.5-18.0); IMMATURE GRAN # 0.05 x10^3u/L (0.00-0.03); IMMATURE GRAN % 0.4 % (0.00-0.4); Lymphocyte (Absolute #) 3.75 x10^3/uL (1.0-4.6); Lymphocytes % 30.4 % (24.0-44.0); Mean Cell Volume 92.1 fL (78-100); Mean Corpuscular Hemoglobin 30.3 pg (26-32); Mean Corpuscular Hgb Concent. 32.9 g/dL (32-36); Mean Platelet Volume 10.2 fL (7.5-11.0); Monocyte (Absolute #) 0.87 x10^3/uL (0.0-1.3); Monocytes % 7.1 % (0.0-12.0); Neutrophil % 59.7 % (36.0-66.0); Platelet Count 345 x10^3/uL (150-450); Red Blood Count 4.42 x10^6/uL (4.1-5.6); Red Cell Distribution Width 13.2 % (11.5-14.0); White Blood Count 12.3 x10^3/uL (4.0-10.5)
[2023-10-19 17:52] LABS: ALBUMIN 4.5 g/dL (3.5-5.0); ANION GAP 10.7 MEQ/L (5-15); BILIRUBIN,TOTAL 0.5 mg/dL (0.2-1.3); Calcium 9.4 mg/dL (8.4-10.2); Creatinine 1 1.01 mg/dL (0.66-1.25); EST GLOMERULAR FILTRATION RATE 95.8 ML/MIN; Total Protein 7.8 g/dL (6.3-8.2)
[2023-10-19 18:42] VITALS: BP 140/90; PULSE 61
--- NOTE | 2023-10-19 20:56 | XRAY ---
Indication: Abdomen pain and blood in stool. Comparison: None KUB nonacute and nonobstructed with mild scattered fecal debris predominantly in ascending and transverse colon. Solid organs and osseous structures unremarkable.
== END 2023-10-19 19:04 | disposition home or self-care (01) ==
LOC: ED 16:39
DX: K57.92 Diverticulitis of intestine, part unspecified, without perforation or abscess without bleeding (principal); K64.9 Unspecified hemorrhoids; R10.30 Lower abdominal pain, unspecified; I10 Essential (primary) hypertension; Z79.899 Other long term (current) drug therapy; Z72.0 Tobacco use
CPT/HCPCS: 36415; 74018; 80053; 85025; 99283

== ENCOUNTER 2024-02-17 11:03 | Emergency (ER) | payer OTHER ==
[2024-02-17 11:14] VITALS: RESP 20; TEMP 97.8
--- NOTE | 2024-02-17 11:25 | ERPHSYRPT ---
- History of Present Illness Time Seen by Provider: 02/17/24 11:15 Historian: patient Exam Limitations: no limitations Patient Subjective Stated Complaint: PT states "I have diverticulitis and I am on levoquin now and I have an appointment with Dr. Peck tomorrow but I am having diarrhea. The pain and nausea went away but I called the office and they told me to come here." Triage Nursing Assessment: Pt presented alert and oriented X 3, skin pwd. Pt ambulates with an upright steady gait, able to speak in clear full sentensces. PT resting comfortably on the bed. Physician History: This is a 43-year-old white male patient who was diagnosed with diverticulitis, as an outpatient, and started on Levaquin and Flagyl. Patient's primary care provider is Dr. Peck. Patient has taken 4 days of his antibiotic regimen. Suddenly, yesterday and again today, the patient experiencing significant diarrhea. Patient has had no nausea or vomiting and denies abdominal pain at this time. Patient has an appointment to see Dr. Peck tomorrow, 02/18/2024. Patient denies chest pain. Patient denies shortness of breath. Patient has a history of anxiety and hypertension. Timing/Duration: yesterday Activities at Onset: none Severity of Pain-Max: none Severity of Pain-Current: none Modifying Factors: Improves With: nothing Associated Symptoms: diarrhea, No chest pain, No loss of appetite, No nausea, No shortness of breath, No vomiting, No weakness Previous symptoms: recently seen, recently treated Allergies/Adverse Reactions: paroxetine [From Paxil] Adverse Reaction (Verified 10/19/23 16:55) Home Medications: Hydroxyzine HCl 25 mg [Atarax 25 mg] 1 tab PO HS 07/25/22 [History] Benazepril HCl 20 mg PO DAILY 03/12/23 [History] Clonidine HCl 0.1 mg [Clonidine 0.1 mg Tablet] 0.1 mg PO TID 03/12/23 [History] Meclizine HCl 25 mg [Antivert 25 mg] 1 tab PO TID PRN 03/26/23 [History] Hx Tetanus, Diphtheria Vaccination/Date Given: No Hx Influenza Vaccination/Date Given: Yes Hx Pneumococcal Vaccination/Date Given: No Immunizations Up to Date: No Travel Risk - International Travel Have you traveled outside of the country in past 3 weeks: No - Emerging Infectious Disease Are you exhibiting symptoms associated with any current EIDs: Yes Symptoms: Diarrhea - Review of Systems Constitutional: No Symptoms Eyes: No Symptoms Ears, Nose, & Throat: No Symptoms Respiratory: No Symptoms Cardiac: No Symptoms Abdominal/Gastrointestinal: Diarrhea, No Abdominal Pain, No Nausea, No Vomiting, No Constipation, No Appetite Changes Genitourinary Symptoms: No Symptoms Musculoskeletal: No Symptoms Skin: No Symptoms Neurological: No Symptoms Psychological: No Symptoms Endocrine: No Symptoms Hematologic/Lymphatic: No Symptoms Immunological/Allergic: No Symptoms All Other Systems: Reviewed and Negative - Past Medical History Pertinent Past Medical History: Yes Neurological History: No Pertinent History ENT History: No Pertinent History Cardiac History: Hypertension Respiratory History: No Pertinent History Endocrine Medical History: No Pertinent History Musculoskeletal History: No Pertinent History GI Medical History: Diverticulitis History: No Pertinent History Psycho-Social History: Anxiety, Depression Male Reproductive Disorders: No Pertinent History Other Medical History: MRSA, Hemorrhoids - Past Surgical History Past Surgical History: No - Social History Smoking Status: Current every day smoker How long have you smoked: 25 yrs Exposure to second hand smoke: Yes Drug Use: none Patient Lives Alone: No - Nursing Vital Signs Nursing Vital Signs: Initial Vital Signs Temperature 97.8 F 02/17/24 11:09 Pulse Rate 71 02/17/24 11:09 Respiratory Rate 20 02/17/24 11:09 Blood Pressure 148/99 02/17/24 11:09 O2 Sat by Pulse Oximetry 99 02/17/24 11:09 Pain Scale Pain Intensity 2 - Physical Exam General Appearance: no apparent distress, alert, anxiety, thin Eye Exam: PERRL/EOMI, eyes nml inspection Ears, Nose, Throat Exam: normal ENT inspection, moist mucous membranes Neck Exam: normal inspection, non-tender, supple, full range of motion Respiratory Exam: normal breath sounds, lungs clear, airway intact, No chest tenderness, No respiratory distress Cardiovascular Exam: regular rate/rhythm, normal heart sounds, normal peripheral pulses Gastrointestinal/Abdomen Exam: soft, normal bowel sounds, No tenderness Rectal Exam: not done Back Exam: normal inspection, normal range of motion, No CVA tenderness, No vertebral tenderness Extremity Exam: normal inspection, normal range of motion, pelvis stable Neurologic Exam: alert, 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, 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, 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, normal mood/affect, nml cerebellar function, nml station & gait, sensation nml Skin Exam: normal color, warm, dry Lymphatic Exam: No adenopathy SpO2 Interpretation: normal SpO2: 99 O2 Delivery: Room Air - Course Nursing assessment & vital signs reviewed: Yes Ordered Tests: Active Orders 24 hr Category Date Time Status IV Insertion STAT Care 02/17/24 11:25 Active ABDOMEN AND PELVIS W/0 CONTRAS [CT] Stat Exams 02/17/24 11:25 Completed AMYLASE Stat Lab 02/17/24 12:20 Completed CBC W DIFF Stat Lab 02/17/24 12:20 Completed CMP Stat Lab 02/17/24 12:20 Completed LIPASE Stat Lab 02/17/24 12:20 Completed Lactic Acid Stat Lab 02/17/24 12:15 Completed UA W/RFX UR CULTURE Stat Lab 02/17/24 11:40 Completed Medication Summary Discontinued Medications Generic Name Dose Route Start Last Admin Trade Name Freq PRN Reason Stop Dose Admin Sodium Chloride 1,000 mls @ 999 mls/hr 02/17/24 11:25 02/17/24 12:26 Sodium Chloride 0.9% 1000 Ml IV 02/17/24 12:25 999 mls/hr .Q1H1M STA Administration Sodium Chloride Confirm 02/17/24 12:24 Sodium Chloride 0.9% 1000 Ml Administered 02/17/24 12:25 Dose 1,000 mls @ ud .ROUTE .STK-MED ONE Lab/Rad Data: Laboratory Result Diagrams 02/17/24 12:20 02/17/24 12:20 Laboratory Results 02/17/24 02/17/24 02/17/24 Range/Units 12:20 12:20 12:15 WBC 10.3 (4.0-10.5) x10^3/uL RBC 4.91 (4.1-5.6) x10^6/uL Hgb 14.7 (12.5-18.0) g/dL Hct 43.7 (42-50) % MCV 89.0 (78-100) fL MCH 29.9 (26-32) pg MCHC 33.6 (32-36) g/dL RDW 13.3 (11.5-14.0) % Plt Count 283 (150-450) x10^3/uL MPV 9.8 (7.5-11.0) fL Gran % 66.6 H (36.0-66.0) % Immature Gran % (Auto) 0.3 (0.00-0.4) % Nucleat RBC Rel Count 0.0 (0.00-0.1) % Eos # (Auto) 0.09 (0-0.5) x10^3/uL Immature Gran # (Auto) 0.03 (0.00-0.03) x10^3u/L Absolute Lymphs (auto) 2.51 (1.0-4.6) x10^3/uL Absolute Monos (auto) 0.76 (0.0-1.3) x10^3/uL Absolute Nucleated RBC 0.00 (0.00-0.01) x10^3u/L Lymphocytes % 24.4 (24.0-44.0) % Monocytes % 7.4 (0.0-12.0) % Eosinophils % 0.9 (0.00-5.0) % Basophils % 0.4 (0.0-0.4) % Absolute Granulocytes 6.86 (1.4-6.9) x10^3/uL Basophils # 0.04 (0-0.4) x10^3/uL Sodium 140 (135-145) mmol/L Potassium 3.8 (3.5-5.1) mmol/L Chloride 108 H (98-107) mmol/L Carbon Dioxide 23 (22-30) mmol/L Anion Gap 13.0 (5-15) MEQ/L BUN 14 (9-20) mg/dL Creatinine 1.12 (0.66-1.25) mg/dL Estimated GFR 84.6 ML/MIN Glucose 86 (74-106) mg/dL Lactic Acid 0.7 (0.4-2.0) Calcium 9.1 (8.4-10.2) mg/dL Total Bilirubin 0.50 (0.2-1.3) mg/dL AST 26 (17-59) U/L ALT 14 (0-50) U/L Alkaline Phosphatase 79 (38-126) U/L Serum Total Protein 7.5 (6.3-8.2) g/dL Albumin 4.1 (3.5-5.0) g/dL Amylase 60 (30-110) U/L Lipase 94 (23-300) U/L Urine Color (Yellow) Urine Appearance (Clear) Urine pH (4.6-8.0) Ur Specific Borden (1.005-1.030) Urine Protein (Negative) Urine Glucose (UA) (Negative) mg/dL Urine Ketones (Negative) Urine Blood (Negative) Urine Nitrite (Negative) Urine Bilirubin (Negative) Urine Urobilinogen (0.2) mg/dL Ur Leukocyte Esterase (Negative) U Hyaline Cast (Auto) (0-2) /LPF Urine Microscopic RBC (0-5) /HPF Urine Microscopic WBC (0-5) /HPF Ur Epithelial Cells (None Seen) /HPF Urine Bacteria (None Seen) /HPF Urine Culture Reflexed (NO) Influenza Type A Ag (NEGATIVE) Influenza Type B Ag (NEGATIVE) RSV (PCR) (NEGATIVE) SARS-CoV-2 (PCR) (NEGATIVE) 02/17/24 02/17/24 Range/Units 12:05 11:40 WBC (4.0-10.5) x10^3/uL RBC (4.1-5.6) x10^6/uL Hgb (12.5-18.0) g/dL Hct (42-50) % MCV (78-100) fL MCH (26-32) pg MCHC (32-36) g/dL RDW (11.5-14.0) % Plt Count (150-450) x10^3/uL MPV (7.5-11.0) fL Gran % (36.0-66.0) % Immature Gran % (Auto) (0.00-0.4) % Nucleat RBC Rel Count (0.00-0.1) % Eos # (Auto) (0-0.5) x10^3/uL Immature Gran # (Auto) (0.00-0.03) x10^3u/L Absolute Lymphs (auto) (1.0-4.6) x10^3/uL Absolute Monos (auto) (0.0-1.3) x10^3/uL Absolute Nucleated RBC (0.00-0.01) x10^3u/L Lymphocytes % (24.0-44.0) % Monocytes % (0.0-12.0) % Eosinophils % (0.00-5.0) % Basophils % (0.0-0.4) % Absolute Granulocytes (1.4-6.9) x10^3/uL Basophils # (0-0.4) x10^3/uL Sodium (135-145) mmol/L Potassium (3.5-5.1) mmol/L Chloride (98-107) mmol/L Carbon Dioxide (22-30) mmol/L Anion Gap (5-15) MEQ/L BUN (9-20) mg/dL Creatinine (0.66-1.25) mg/dL Estimated GFR ML/MIN Glucose (74-106) mg/dL Lactic Acid (0.4-2.0) Calcium (8.4-10.2) mg/dL Total Bilirubin (0.2-1.3) mg/dL AST (17-59) U/L ALT (0-50) U/L Alkaline Phosphatase (38-126) U/L Serum Total Protein (6.3-8.2) g/dL Albumin (3.5-5.0) g/dL Amylase (30-110) U/L Lipase (23-300) U/L Urine Color Yellow (Yellow) Urine Appearance Clear (Clear) Urine pH 6.0 (4.6-8.0) Ur Specific Borden <=1.005 (1.005-1.030) Urine Protein Negative (Negative) Urine Glucose (UA) Negative (Negative) mg/dL Urine Ketones Trace A (Negative) Urine Blood Negative (Negative) Urine Nitrite Negative (Negative) Urine Bilirubin Negative (Negative) Urine Urobilinogen 0.2 (0.2) mg/dL Ur Leukocyte Esterase Negative (Negative) U Hyaline Cast (Auto) NONE SEEN (0-2) /LPF Urine Microscopic RBC 0-2 (0-5) /HPF Urine Microscopic WBC 0-2 (0-5) /HPF Ur Epithelial Cells None Seen (None Seen) /HPF Urine Bacteria None Seen (None Seen) /HPF Urine Culture Reflexed NO (NO) Influenza Type A Ag NEGATIVE (NEGATIVE) Influenza Type B Ag NEGATIVE (NEGATIVE) RSV (PCR) NEGATIVE (NEGATIVE) SARS-CoV-2 (PCR) NEGATIVE (NEGATIVE) - Progress Progress: unchanged, re-examined Progress Note: 02/17/24 11:53 My medical decision making and the assignment of moderate complexity to this patient's medical condition today is based on review of the patient's past medical history, review patient's medication list, review of patient drug allergy list, history present illness and physical findings on examination. The workup in this patient includes placement of an intravenous line, infusion normal saline solution, CBC, CMP, amylase, lipase, urinalysis, CT scan of the abdomen and pelvis without contrast. Differential diagnosis includes worsening diverticulitis with complication, similar level of diverticulitis, viral illness, pancreatitis, medication side effect. 02/17/24 12:48 CT scan of the abdomen pelvis was interpreted by the radiologist and I reviewed the impression. The impression states minimal colonic diverticulosis without diverticulitis. No new or acute intra-abdominal or intrapelvic abnormalities. 02/17/24 12:50 I will have the patient's stop his antibiotics. The patient has no physical signs or radiographic signs of diverticulitis. He does have a complaint of diarrhea which may be secondary to his medication. He has been unable to provide us with a stool specimen. I will have him follow-up with his primary care provider tomorrow at his scheduled appointment on 02/18/2024 for further management and further directions. Counseled pt/family regarding: lab results, diagnosis, need for follow-up, rad results Medical Desision Making - Diagnostic Testing Diagnostic test were ordered, analyzed, and reviewed by me: Yes Radiological Interpretation: Reviewed by me, Teleradiologist Report - Risk of complications Low Risk: Low risk of morbidity from additional dx testing or treatment - Departure Departure Disposition: Home Clinical Impression: Diarrhea, unspecified Condition: Stable Critical Care Time: No Referrals: CLAUDETTE PECK [Primary Care Provider] - Follow up/PCP as directed Additional Instructions: Drink plenty of fluids. Stop your antibiotics. Keep your appointment to see Dr. Peck tomorrow, 02/18/2024.
[2024-02-17 12:01] LABS: Appearance Clear (Clear); Bacteria None Seen /HPF (None Seen); Bilirubin Negative (Negative); Blood Negative (Negative); Epithelial Cells None Seen /HPF (None Seen); Glucose, Urine Negative (Negative); Hyaline Casts NONE SEEN /LPF (0-2); Ketones Trace (Negative); Leukocyte Esterase Negative (Negative); Nitrite Negative (Negative); Protein,Urine Dip Negative (Negative); RBC 0-2 /HPF (0-5); Specific Gravity <=1.005 (1.005-1.030); Urobilinogen 0.2 mg/dL (0.2); WBC 0-2 /HPF (0-5)
[2024-02-17 12:03] LABS: ADD URINE CULTURE? NO (NO)
[2024-02-17] MEDS ORDERED: Sodium Chloride 0.9% 1000 ML 1,000 ML ONE (12:24)
--- NOTE | 2024-02-17 12:25 | XRAY ---
Indication: Fever and diarrhea. Multiple contiguous axial images obtained through the abdomen and pelvis without contrast. Comparison: September 11, 2023. Lung bases remain clear again with pulmonary emphysema and tiny right base calcified granuloma. Heart not enlarged. Noncontrasted stomach and bowel loops nonobstructed again with normal appendix. Again minimal descending and sigmoid diverticulosis without diverticulitis per no free fluid/air. Remaining liver, gallbladder, pancreas, spleen, adrenal glands, kidneys, ureters, bladder, and aorta are unremarkable for noncontrast exam. Osseous structures intact. Impression: Again minimal colonic diverticulosis without diverticulitis. No new or acute intra-abdominal/pelvic abnormalities on this noncontrast exam.
[2024-02-17 12:26] LABS: Absolute Neutrophil Ct (ANC) 6.86 x10^3/uL (1.4-6.9); BASOPHIL % 0.4 % (0.0-0.4); Basophil (Absolute #) 0.04 x10^3/uL (0-0.4); Eosinophil % 0.9 % (0.00-5.0); Eosinophil (Absolute #) 0.09 x10^3/uL (0-0.5); Hematocrit 43.7 % (42-50); Hemoglobin 14.7 g/dL (12.5-18.0); IMMATURE GRAN # 0.03 x10^3u/L (0.00-0.03); IMMATURE GRAN % 0.3 % (0.00-0.4); Lymphocyte (Absolute #) 2.51 x10^3/uL (1.0-4.6); Lymphocytes % 24.4 % (24.0-44.0); Mean Corpuscular Hemoglobin 29.9 pg (26-32); Mean Corpuscular Hgb Concent. 33.6 g/dL (32-36); Mean Platelet Volume 9.8 fL (7.5-11.0); Monocyte (Absolute #) 0.76 x10^3/uL (0.0-1.3); Monocytes % 7.4 % (0.0-12.0); Neutrophil % 66.6 % (36.0-66.0); Platelet Count 283 x10^3/uL (150-450); Red Blood Count 4.91 x10^6/uL (4.1-5.6); Red Cell Distribution Width 13.3 % (11.5-14.0); White Blood Count 10.3 x10^3/uL (4.0-10.5)
[2024-02-17] MEDS: Sodium Chloride 0.9% 1000 ML 1,000 ML IV STA (12:26)
[2024-02-17 12:38] LABS: ALBUMIN 4.1 g/dL (3.5-5.0); BILIRUBIN,TOTAL 0.5 mg/dL (0.2-1.3); Calcium 9.1 mg/dL (8.4-10.2); Creatinine 1 1.12 mg/dL (0.66-1.25); EST GLOMERULAR FILTRATION RATE 84.6 ML/MIN; Potassium 3.8 mmol/L (3.5-5.1); Total Protein 7.5 g/dL (6.3-8.2)
[2024-02-17 12:43] LABS: INFLUENZA A NEGATIVE (NEGATIVE); INFLUENZA B NEGATIVE (NEGATIVE); RESPIRATORY SYNCTIAL VIRUS NEGATIVE (NEGATIVE); SARS-CoV-2 Xpert Express NEGATIVE (NEGATIVE)
[2024-02-17 13:13] VITALS: BP 113/68; PULSE 63; O2SAT 97
== END 2024-02-17 13:22 | disposition home or self-care (01) ==
LOC: ED 11:03
DX: R19.7 Diarrhea, unspecified (principal); I10 Essential (primary) hypertension; Z79.899 Other long term (current) drug therapy; Z72.0 Tobacco use
CPT/HCPCS: 0241U; 36000; 36415; 74176; 80053; 81001; 82150; 83605; 83690; 85025; 99284